=== PATIENT | male | born 1965 | race Caucasian/White ===

== ENCOUNTER 2017-10-23 15:25 | Emergency (ER) | payer OTHER ==
[~2017-10-23] VITALS: Ht 177.8 cm; Wt 90.7 kg
[~2017-10-23 15:25] MED LIST: ACEBUTCAFT PO; ALBU90OI INH; AMOX500 PO; ATOR40TA PO; BECL40OI INH; BECL80OI INH; CHOLESTEROL MED; CIPHYDOTSU OT; CRUTCH3 USE; CYCL10 PO; DICY20 PO; EMVERM100 MG PO; ERYT.5TO OD; FISH1000 PO; HYDACE10B PO; HYDACE5 PO; IBUP200; IBUP600 PO; IBUP800 PO; KETO10 PO; LISI20 PO; LISI5 PO; META800 PO; METO50 PO; METO50ER PO; Mobic15 MG PO; NAPR500 PO; NEOPOLHCSU OT; NORT25 PO; NORTRIPTYLLINE PO; Naprosyn500 MG PO; OMEP20ER PO; OXYACE5T; OXYACE5T PO; OXYC5 PO; PROC10 PO; PROM25 PO; Percocet 5-3251 EACH PO; RANI150 PO; Robaxin500 MG PO; SILSUL1TC TOP; SIMV10 PO; SIMVASTATIN PO; SUCR1SU PO; SUMA25 PO; SUMA5NI; TRAM50 PO; UNKNOWN CHOLESTEROL; Ultram50 MG PO; VENL37.5 PO; VENL75ER PO; Ventolin5 MG/1 ML IH; Voltaren100 GM TP; Zofran Odt4 MG SL
== END 2017-10-23 16:41 | disposition home or self-care (01) ==
LOC: ER 15:25
DX: H54.62 Unqualified visual loss, left eye, normal vision right eye (principal); I10 Essential (primary) hypertension; F17.200 Nicotine dependence, unspecified, uncomplicated; Z88.8 Allergy status to other drugs, medicaments and biological substances; Z88.5 Allergy status to narcotic agent; Z88.6 Allergy status to analgesic agent
CPT/HCPCS: 36415; 85651; 86140; 99283

== ENCOUNTER 2018-05-30 13:56 | Emergency (ER) | payer OTHER ==
[~2018-05-30] VITALS: Ht 177.8 cm; Wt 79.4 kg
[2018-05-30] MEDS ORDERED: Percocet 5-3251 EACH PO (15:18)
== END 2018-05-30 15:32 | disposition home or self-care (01) ==
LOC: ER 13:56
DX: S62.302A Unspecified fracture of third metacarpal bone, right hand, initial encounter for closed fracture (principal); W01.198A Fall on same level from slipping, tripping and stumbling with subsequent striking against other object, initial encounter; Z88.8 Allergy status to other drugs, medicaments and biological substances; Z88.5 Allergy status to narcotic agent; I10 Essential (primary) hypertension; F17.200 Nicotine dependence, unspecified, uncomplicated
CPT/HCPCS: 29125; 73130; 99283-25

== ENCOUNTER 2018-08-16 16:29 | Emergency (ER) | payer OTHER ==
[~2018-08-16] VITALS: Ht 177.8 cm; Wt 68.0 kg
[2018-08-16] MEDS ORDERED: CYCL10 PO (16:57)
[2018-08-16] MEDS ORDERED: Percocet 5-3251 EACH PO (16:57)
== END 2018-08-16 17:12 | disposition home or self-care (01) ==
LOC: ER 16:29
DX: M54.5 Low back pain (principal); I12.0 Hypertensive chronic kidney disease with stage 5 chronic kidney disease or end stage renal disease; N18.5 Chronic kidney disease, stage 5; F17.200 Nicotine dependence, unspecified, uncomplicated; X50.0XXA Overexertion from strenuous movement or load, initial encounter
CPT/HCPCS: 96372; 99283-25; J1885

== ENCOUNTER 2018-11-15 13:42 | Emergency (ER) | payer OTHER ==
[~2018-11-15] VITALS: Ht 177.8 cm; Wt 85.7 kg
[~2018-11-15 13:42] MED LIST changes: +Norco 7.5-3251 EACH PO
[2018-11-15] MEDS ORDERED: Flonase 0.05% N16 GM (14:36)
[2018-11-15] MEDS ORDERED: LISI20 PO (14:37)
[2018-11-15] MEDS ORDERED: AMLO5 PO (14:37)
[2018-11-15] MEDS ORDERED: OMEPRAZOLE20 MG PO (14:37)
[2018-11-19] MEDS ORDERED: ATOR80 PO (14:15)
== END 2018-11-15 15:52 | disposition left against medical advice (07) ==
LOC: ER 13:42
DX: Z53.21 Procedure and treatment not carried out due to patient leaving prior to being seen by health care provider (principal)

== ENCOUNTER 2019-10-20 11:17 | Emergency (ER) | payer OTHER ==
[~2019-10-20] VITALS: Ht 177.8 cm; Wt 99.8 kg
[~2019-10-20 11:17] MED LIST changes: +AMLO5 PO; +ATOR80 PO; +Flonase 0.05% N16 GM; +OMEPRAZOLE20 MG PO
[2019-10-20 12:10] LABS: BASOPHILS PERCENT AUTO 2 % (0-2); EOSINOPHILS ABSOLUTE AUTO 0.25 K/mm3 (0.00-0.68); EOSINOPHILS PERCENT AUTO 4 % (0-6); Hemoglobin 16.2 g/dL (13.5-17.5); IMMATURE GRAN ABSOLUTE AUTO 0.03 K/mm3 (0.00-0.10); IMMATURE GRAN PERCENT AUTO 0 % (0-1); LYMPHOCYTES ABSOLUTE AUTO 2.21 K/mm3 (0.84-5.20); LYMPHOCYTES PERCENT AUTO 33 % (21-46); MONOCYTES ABSOLUTE AUTO 0.39 K/mm3 (0.16-1.47); MONOCYTES PERCENT AUTO 6 % (4-13); Mean Corpuscular HGB 30.5 pg (26.0-34.0); Mean Corpuscular HGB Conc 32.4 g/dL (31.5-36.5); Mean Corpuscular Volume 94 fL (80-100); Mean Platelet Volume 11.4 fL (9.1-12.4); NEUTROPHILS ABSOLUTE AUTO 3.74 K/mm3 (1.96-9.15); NEUTROPHILS PERCENT AUTO 56 % (41-73); Platelet Count 170 K/mm3 (150-400); RDW Coefficient Variation 13.2 % (11.7-14.2); RDW Standard Deviation 45.4 fL (35.1-46.3); Red Blood Cell Count 5.32 M/mm3 (4.30-5.90); White Blood Cell Count 6.72 K/mm3 (4.00-11.30)
[2019-10-20 12:24] LABS: Alanine Aminotransfer (ALT/SGP 24 U/L (12-78); Albumin, Blood 3.4 g/dL (3.4-5.0); Alk Phos 116 U/L (50-136); Anion Gap 4 mmol/L (6-16); Aspartate Aminotrans (AST/SGOT 18 U/L (12-37); Bilirubin, Total 0.2 mg/dL (0.1-1.0); Blood Urea Nitrogen 14 mg/dL (8-24); Bun/Creatinine Ratio 16.1 (12.0-20.0); CO2, Blood 26 mmol/L (21-32); Calcium, Blood 8.4 mg/dL (8.5-10.1); Chloride, Blood 111 mmol/L (98-108); Creatinine, Blood 0.87 mg/dL (0.60-1.20); Globulin, Blood 3.4 g/dL (2.2-4.0); Glomerular Filtration Rate >60 (60-); Glucose, Blood 89 mg/dL (70-99); Magnesium, Blood 2.4 mg/dL (1.6-2.4); Potassium, Blood 4.2 mmol/L (3.5-5.5); Sodium, Blood 141 mmol/L (136-145); Total Protein, Blood 6.8 g/dL (6.4-8.2); Troponin I <0.015 ng/mL (0.000-0.040)
[2019-10-20] MEDS ORDERED: Prinivil10 MG PO (15:04)
== END 2019-10-20 15:22 | disposition home or self-care (01) ==
LOC: ER 11:17
PROVIDERS: Emergency Medicine
DX: R07.89 Other chest pain (principal); I10 Essential (primary) hypertension; Z88.6 Allergy status to analgesic agent; Z88.5 Allergy status to narcotic agent; Z88.8 Allergy status to other drugs, medicaments and biological substances; Z79.899 Other long term (current) drug therapy; E78.00 Pure hypercholesterolemia, unspecified; F31.9 Bipolar disorder, unspecified; F90.9 Attention-deficit hyperactivity disorder, unspecified type; N19 Unspecified kidney failure; J45.909 Unspecified asthma, uncomplicated; G47.30 Sleep apnea, unspecified; F17.200 Nicotine dependence, unspecified, uncomplicated
CPT/HCPCS: 71046; 80053; 83690; 83735; 83880; 84484; 85025; 93005; 93010; 96374; 96375; 99285-25; J0360; J1885

== ENCOUNTER 2020-08-27 04:51 | Emergency (ER) | payer OTHER ==
[~2020-08-27] VITALS: Ht 177.8 cm; Wt 99.8 kg
[~2020-08-27 04:51] MED LIST changes: +Prinivil10 MG PO
[2020-08-27] MEDS ORDERED: CYCL10 PO (07:38)
[2020-08-27] MEDS ORDERED: PRED20 PO (07:38)
== END 2020-08-27 07:51 | disposition home or self-care (01) ==
LOC: ER 04:51
DX: M54.16 Radiculopathy, lumbar region (principal); I10 Essential (primary) hypertension; E78.00 Pure hypercholesterolemia, unspecified; J45.909 Unspecified asthma, uncomplicated; F17.210 Nicotine dependence, cigarettes, uncomplicated; Z88.8 Allergy status to other drugs, medicaments and biological substances
CPT/HCPCS: 99283; A9270; J1100

== ENCOUNTER 2020-09-01 20:39 | Emergency (ER) | payer OTHER ==
[~2020-09-01] VITALS: Ht 172.7 cm; Wt 86.2 kg
[~2020-09-01 20:39] MED LIST changes: +PRED20 PO
[2020-09-01] MEDS ORDERED: CLIN300 PO (21:07)
== END 2020-09-01 21:11 | disposition home or self-care (01) ==
LOC: ER 20:39
DX: L02.811 Cutaneous abscess of head [any part, except face] (principal); I10 Essential (primary) hypertension; E78.00 Pure hypercholesterolemia, unspecified; F17.210 Nicotine dependence, cigarettes, uncomplicated; Z79.82 Long term (current) use of aspirin; Z79.899 Other long term (current) drug therapy; Z88.6 Allergy status to analgesic agent; Z88.5 Allergy status to narcotic agent; Z88.8 Allergy status to other drugs, medicaments and biological substances
CPT/HCPCS: 99283; A9270

== ENCOUNTER 2020-11-21 11:24 | Emergency (ER) | payer OTHER ==
[~2020-11-21] VITALS: Ht 177.8 cm; Wt 99.8 kg
[~2020-11-21 11:24] MED LIST changes: +CLIN300 PO
== END 2020-11-21 15:29 | disposition left against medical advice (07) ==
LOC: ER 11:24
DX: K04.7 Periapical abscess without sinus (principal); Z53.21 Procedure and treatment not carried out due to patient leaving prior to being seen by health care provider
CPT/HCPCS: 99282

== ENCOUNTER 2023-09-28 07:25 | Day surgery (SDC) | payer OTHER ==
[2023-09-28] MEDS ORDERED: propofoL 50 ML IV ONE (07:35)
[2023-09-28] MEDS ORDERED: Lactated Ringer's 1,000 ML IV ONE ×2 (07:35→08:15)
[2023-09-28] MEDS ORDERED: NICOTINE LOZENGE2 MG ×2 (07:43)
[2023-09-28] MEDS ORDERED: ZESTRIL40 M1 ×2 (07:43)
[2023-09-28 09:32] VITALS: BP 156/104
[2023-10-03] MEDS ORDERED: NICO21TP TOP ×2 (14:44)
[2023-10-03] MEDS ORDERED: DOCU100 PT ×2 (14:46)
[2023-10-03] MEDS ORDERED: OXYC5 PO ×2 (14:47)
== END 2023-09-28 09:15 | disposition home or self-care (01) ==
LOC: ORSCSDS 07:25
PROVIDERS: Internal Medicine Gastroenterology
PROC: 0DB58ZX Excision of Esophagus, Via Natural or Artificial Opening Endoscopic, Diagnostic (ICD-10-PCS; principal; 2023-09-28 08:45)
DX: R13.10 Dysphagia, unspecified (principal); C15.5 Malignant neoplasm of lower third of esophagus; R93.3 Abnormal findings on diagnostic imaging of other parts of digestive tract; R63.4 Abnormal weight loss; F31.9 Bipolar disorder, unspecified; G47.33 Obstructive sleep apnea (adult) (pediatric); Z79.899 Other long term (current) drug therapy; Z87.891 Personal history of nicotine dependence
CPT/HCPCS: 88305; 88360; J2704; J7120

== ENCOUNTER 2023-09-28 13:08 | Inpatient (IN) | payer OTHER ==
[~2023-09-28] VITALS: Ht 177.8 cm; Wt 68.7 kg
[~2023-09-28 13:08] MED LIST changes: +NICOTINE LOZENGE2 MG; +ZESTRIL40 M1
[2023-09-28] MEDS ORDERED: Acetaminophen 650 MG Supp PR PRN (15:35)
[2023-09-28] MEDS ORDERED: HYDROmorphone HCl/Pf 1MG SYR IV PRN (15:40)
[2023-09-28] MEDS ORDERED: Ondansetron HCl 2 MG / ML 2ML Vial IV PRN (15:40)
[2023-09-28] MEDS ORDERED: Bisacodyl 10 MG Supp PR PRN (15:40)
[2023-09-28] MEDS ORDERED: Naloxone HCl 0.4MG / ML 1ML Vial IV PRN (15:40)
[2023-09-28] MEDS ORDERED: Morphine Sulfate 4 MG/1 ML Injection IV PRN (15:45)
[2023-09-28] MEDS ORDERED: D5W-NS 1,000 ML IV SCH (16:00)
[2023-09-28 17:27] VITALS: BP 180/107
[2023-09-28 19:26] VITALS: BP 174/109
[2023-09-28] MEDS ORDERED: Famotidine 10 MG/ML 2ML Vial IV SCH (21:00)
[2023-09-28] MEDS ORDERED: Lactobacil 2-S.Thermo-Bifido 1 1 Cap PO SCH (21:00)
[2023-09-29 02:54] VITALS: BP 166/102
--- NOTE | 2023-09-29 04:53 | NUR ---
SHIFT SUMMARY: RICHARD IS A&OX4. VSS, BP ELEVATED BUT CONSISTENT WITH TREND. PT IS NPO, MOUTH SWABS AND MOISTURIZER PROVIDED. IV TO RIGHT WRIST PATENT, FLUIDS INFUSING. PT IS INDEPENDENT IN THE ROOM AND REPORTS ADEQUATE PAIN CONTROL WITH MEDICATIONS PER MAR. PT STATES AWAITING PEG TUBE PLACEMENT, NO SURGICAL CONSULT IN PLACE AT THIS TIME, STUDIO OPERATIONS MANAGER HAS BEEN CONSULTED. PT IS LYING IN BED WITH THE CALL LIGHT IN REACH. WILL GIVE REPORT TO DAY SHIFT RN.
[2023-09-29 05:22] LABS: BASOPHILS ABSOLUTE AUTO 0.07 K/mm3 (0.00-0.23); BASOPHILS PERCENT AUTO 1 % (0-2); EOSINOPHILS ABSOLUTE AUTO 0.22 K/mm3 (0.00-0.68); EOSINOPHILS PERCENT AUTO 4 % (0-6); Hematocrit 43.9 % (37.0-53.0); Hemoglobin 14.3 g/dL (13.5-17.5); IMMATURE GRAN ABSOLUTE AUTO 0.02 K/mm3 (0.00-0.10); IMMATURE GRAN PERCENT AUTO 0 % (0-1); LYMPHOCYTES ABSOLUTE AUTO 1.63 K/mm3 (0.84-5.20); LYMPHOCYTES PERCENT AUTO 30 % (21-46); MONOCYTES ABSOLUTE AUTO 0.45 K/mm3 (0.16-1.47); MONOCYTES PERCENT AUTO 8 % (4-13); Mean Corpuscular HGB 29.2 pg (26.0-34.0); Mean Corpuscular HGB Conc 32.6 g/dL (31.5-36.5); Mean Corpuscular Volume 90 fL (80-100); Mean Platelet Volume 10.3 fL (9.1-12.4); NEUTROPHILS ABSOLUTE AUTO 3.09 K/mm3 (1.96-9.15); NEUTROPHILS PERCENT AUTO 56 % (41-73); Platelet Count 215 K/mm3 (150-400); RDW Coefficient Variation 12.9 % (11.7-14.2); RDW Standard Deviation 42.4 fL (35.1-46.3); Red Blood Cell Count 4.89 M/mm3 (4.30-5.90); White Blood Cell Count 5.48 K/mm3 (4.00-11.30)
[2023-09-29 05:49] LABS: Albumin, Blood 3.1 g/dL (3.4-5.0); Albumin/Globulin Ratio 0.9 (0.8-1.8); Bilirubin, Total 0.4 mg/dL (0.1-1.0); Calcium, Blood 8.4 mg/dL (8.5-10.1); Creatinine, Blood 0.89 mg/dL (0.60-1.20); Globulin, Blood 3.3 g/dL (2.2-4.0); Magnesium, Blood 2.3 mg/dL (1.6-2.4); Potassium, Blood 3.7 mmol/L (3.5-5.5); Total Protein, Blood 6.4 g/dL (6.4-8.2)
[2023-09-29 07:47] VITALS: BP 163/112
[2023-09-29] MEDS ORDERED: Heparin Sodium,Porcine 5,000 UNIT/0.5 ML SDV SC SCH (09:00)
[2023-09-29] MEDS ORDERED: Nicotine 21 MG PATCH TOP PRN (10:10)
[2023-09-29] MEDS ORDERED: Phenol/Sodium Phenolate Oral Spray 180 ML MM PRN (10:10)
[2023-09-29] MEDS ORDERED: TPN Consult Notification XX ONE (11:20)
--- NOTE | 2023-09-29 12:45 | NUR ---
pleasant to care, clearly makes needs known, family visited, new eye patch for patient for migraine headache, medicated for pain, throat spray started, dr knox consult called in, npo, indepedant in room, call light with in reach
--- NOTE | 2023-09-29 14:57 | NUR ---
PATIENT HAS HAD MORE VISITORS, ALL HAVE BEEN PLEASANT, PATIENT COMPAINED OF 9/10 PAIN, MEDICATED WITH DILAUDID, CALL LIGHT WITH IN REACH
[2023-09-29 15:08] VITALS: BP 165/104
[2023-09-29] MEDS ORDERED: [UNRECOGNIZED DRUG - NUTRITION] IV SCH (17:00)
--- NOTE | 2023-09-29 17:28 | NUR ---
DR LORA IN ROOM FOR CONSULT NOW, NO ACUTE CHANGES, NPO, TROAT SPRAY AND NICOTINE PATCH STARTED, DR LORA REPORTED PLACEMENT OF GASTROEMTRY TUBE TOMORROW AROUND 930, PPN STARTED, BS CHECKED PRIOR TO PPN STARTED 93, ALERT AND ORIENTED TO ALL, CLEARLY MAKES NEEDS KNOWN, INDEPEDANT IN ROOM, MEDICATED FOR PAIN WITH DILAUDID, WILL RELAY TO PM RN, CALL LIGHT WITH IN REACH
[2023-09-29] MEDS ORDERED: CeFAZolin Sodium 2,000 MG in NS 100 ML IV SCH (18:30)
[2023-09-29 20:16] VITALS: BP 145/110
[2023-09-30] VITALS (16 sets, daily range): BP systolic 105–151; BP diastolic 70–94
[2023-09-30 05:09] LABS: BASOPHILS ABSOLUTE AUTO 0.09 K/mm3 (0.00-0.23); BASOPHILS PERCENT AUTO 1 % (0-2); EOSINOPHILS PERCENT AUTO 3 % (0-6); Hemoglobin 14.3 g/dL (13.5-17.5); IMMATURE GRAN ABSOLUTE AUTO 0.01 K/mm3 (0.00-0.10); IMMATURE GRAN PERCENT AUTO 0 % (0-1); LYMPHOCYTES ABSOLUTE AUTO 1.78 K/mm3 (0.84-5.20); LYMPHOCYTES PERCENT AUTO 28 % (21-46); MONOCYTES ABSOLUTE AUTO 0.53 K/mm3 (0.16-1.47); MONOCYTES PERCENT AUTO 8 % (4-13); Mean Corpuscular HGB 29.7 pg (26.0-34.0); Mean Corpuscular HGB Conc 33.3 g/dL (31.5-36.5); Mean Corpuscular Volume 89 fL (80-100); Mean Platelet Volume 10.3 fL (9.1-12.4); NEUTROPHILS ABSOLUTE AUTO 3.72 K/mm3 (1.96-9.15); NEUTROPHILS PERCENT AUTO 59 % (41-73); Platelet Count 206 K/mm3 (150-400); RDW Coefficient Variation 12.8 % (11.7-14.2); RDW Standard Deviation 42.2 fL (35.1-46.3); Red Blood Cell Count 4.82 M/mm3 (4.30-5.90); White Blood Cell Count 6.33 K/mm3 (4.00-11.30)
--- NOTE | 2023-09-30 05:36 | NUR ---
SHIFT SUMMARY: RICHARD IS A&OX4. VSS, NO ACUTE EVENTS THIS SHIFT. IV TO R WRIST PATENT, PPN INFUSING. PT IS NPO. HE DENIES ANY DIFFICULTY URINATING. PT STATES HE IS SCHEDULED TO HAVE A FEEDING TUBE PLACED THIS MORNING. PT REPORTS ADEQUATE PAIN CONTROL WITH MEDICATION PER JUN. HE IS INDEPENDENT IN THE ROOM. HE IS LYING IN BED WITH THE CALL LIGHT IN REACH. WILL GIVE REPORT TO DAY SHIFT RN.
[2023-09-30 05:45] LABS: Alanine Aminotransfer (ALT/SGP 14 U/L (12-78); Albumin, Blood 2.9 g/dL (3.4-5.0); Albumin/Globulin Ratio 0.9 (0.8-1.8); Alk Phos 93 U/L (50-136); Anion Gap 8 mmol/L (3-11); Aspartate Aminotrans (AST/SGOT 13 U/L (12-37); Bilirubin, Total 0.4 mg/dL (0.1-1.0); Blood Urea Nitrogen 13 mg/dL (8-24); Bun/Creatinine Ratio 15.6 (12.0-20.0); CO2, Blood 27 mmol/L (21-32); Calcium, Blood 8.6 mg/dL (8.5-10.1); Chloride, Blood 107 mmol/L (98-108); Creatinine, Blood 0.84 mg/dL (0.60-1.20); Globulin, Blood 3.4 g/dL (2.2-4.0); Glomerular Filtration Rate 101 (60-); Glucose, Blood 113 mg/dL (70-99); Magnesium, Blood 2.3 mg/dL (1.6-2.4); Phosphorus, Blood 3.5 mg/dL (2.5-4.9); Potassium, Blood 3.9 mmol/L (3.5-5.5); Sodium, Blood 138 mmol/L (136-145); Total Protein, Blood 6.3 g/dL (6.4-8.2); Triglycerides 89 mg/dL (30-160)
[2023-09-30] MEDS ORDERED: Rocuronium Bromide 10 MG/ML 5ML Injection IV ONE (09:06)
[2023-09-30] MEDS ORDERED: propofoL 20 ML IV ONE (09:07)
[2023-09-30] MEDS ORDERED: FentaNYL Citrate 50 MCG/ML 2 ML Injection ONE (09:07)
[2023-09-30] MEDS ORDERED: Lactated Ringer's 1,000 ML IV ONE (09:11)
[2023-09-30] MEDS ORDERED: Midazolam HCl 1MG / ML 2ML Vial ONE (10:18)
[2023-09-30] MEDS ORDERED: Bupivacaine 0.5% HCl 5 MG/ML 30MLVIAL ONE (10:18)
[2023-09-30] MEDS ORDERED: Phenylephrine HCl 100 MCG/ML-NS 10MLSYR (1MG/10ML) ONE (11:01)
[2023-09-30] MEDS ORDERED: Vasopressin 20 UNITS/ML 1ML Vial ONE (11:12)
[2023-09-30] MEDS ORDERED: ePHEDrine Sulfate 50 MG/ML 1ML Injection ONE (11:15)
[2023-09-30] MEDS ORDERED: Sugammadex Sodium 200 MG/2ML SDV (100 MG/ML) ONE (11:43)
[2023-09-30] MEDS ORDERED: HYDROmorphone HCl/Pf 1MG SYR ONE (12:40)
[2023-09-30] MEDS ORDERED: Prochlorperazine Edisylate 10 mg Vial ONE (12:44)
--- NOTE | 2023-09-30 18:34 | NUR ---
ALERT AND OREINTED TO ALL, GTUBE PLACED, PPN INFUSING IV UNTIL OVEN UNLOADER EVALUATES TO NEW GTUBE FORMAL THAT IS NEEDED TOMORROW. MEDICATED FOR THROAT PAIN AND ABD PAIN, COOPERATIVE TO CARE, CALL LIGHT WITH IN REACH, WILL RELAY TO PM RN
[2023-10-01 04:41] VITALS: BP 154/99
[2023-10-01 05:07] LABS: BASOPHILS ABSOLUTE AUTO 0.02 K/mm3 (0.00-0.23); BASOPHILS PERCENT AUTO 0 % (0-2); EOSINOPHILS ABSOLUTE AUTO 0.01 K/mm3 (0.00-0.68); EOSINOPHILS PERCENT AUTO 0 % (0-6); Hematocrit 40.5 % (37.0-53.0); Hemoglobin 13.6 g/dL (13.5-17.5); IMMATURE GRAN ABSOLUTE AUTO 0.03 K/mm3 (0.00-0.10); IMMATURE GRAN PERCENT AUTO 0 % (0-1); LYMPHOCYTES ABSOLUTE AUTO 1.11 K/mm3 (0.84-5.20); LYMPHOCYTES PERCENT AUTO 10 % (21-46); MONOCYTES ABSOLUTE AUTO 0.84 K/mm3 (0.16-1.47); MONOCYTES PERCENT AUTO 8 % (4-13); Mean Corpuscular HGB 29.5 pg (26.0-34.0); Mean Corpuscular HGB Conc 33.6 g/dL (31.5-36.5); Mean Corpuscular Volume 88 fL (80-100); Mean Platelet Volume 10.7 fL (9.1-12.4); NEUTROPHILS ABSOLUTE AUTO 8.72 K/mm3 (1.96-9.15); NEUTROPHILS PERCENT AUTO 81 % (41-73); Platelet Count 212 K/mm3 (150-400); RDW Coefficient Variation 12.8 % (11.7-14.2); RDW Standard Deviation 41.1 fL (35.1-46.3); Red Blood Cell Count 4.61 M/mm3 (4.30-5.90); White Blood Cell Count 10.73 K/mm3 (4.00-11.30)
[2023-10-01 05:31] LABS: Albumin, Blood 2.9 g/dL (3.4-5.0); Albumin/Globulin Ratio 0.8 (0.8-1.8); Bilirubin, Total 0.4 mg/dL (0.1-1.0); Bun/Creatinine Ratio 22.5 (12.0-20.0); Calcium, Blood 8.7 mg/dL (8.5-10.1); Creatinine, Blood 0.98 mg/dL (0.60-1.20); Globulin, Blood 3.5 g/dL (2.2-4.0); Magnesium, Blood 2.6 mg/dL (1.6-2.4); Phosphorus, Blood 3.5 mg/dL (2.5-4.9); Potassium, Blood 4.7 mmol/L (3.5-5.5); Total Protein, Blood 6.4 g/dL (6.4-8.2)
[2023-10-01 07:03] VITALS: BP 155/95
--- NOTE | 2023-10-01 07:11 | NUR ---
SHIFT SUMMARY PT IS A&OX4,PLEASANT AND APPRECIATIVE OF ALL CARES. VSS ON RA. PER TELEMETRY PT IS SR IN THE 60'S. C/O PAIN IN HIS THROAT AND AROUND THE NEWLY PLACED G-TUBE. MEDICATED WITH 2MG IV DILAUDID WITH GOOD RELIEF. CHLORASEPTIC SPRAY USED FOR THROAT PAIN. PT REMAINS NPO, PPN INFUSING PER EMAR. SECOND PIV PLACED TO LEFT FOREARM. DRESSING TO G-TUBE PLACEMENT IS C/D/I. PT IS CACHECTIC IN APPEARANCE, AND HAS MULTIPLE SCABS SCATTERED T/O. FREQUENTLY ITCHING THEM. PT DOES NOT SLEEP WELL AND AT HOME HE TAKES THC TO HELP WITH HIS INSOMNIA. SBA FOR LINE MANAGEMENT TO BR. VOIDING IN TOILET, NO BM THIS SHIFT. FRIEND AT BEDSIDE T/O NOC, ATTENTIVE TO PT. BED IN LOWEST POSITION, CALL LIGHT WITHIN REACH.
[2023-10-01 15:02] VITALS: BP 148/99
--- NOTE | 2023-10-01 18:16 | NUR ---
NO ACUTE CHANGES, ALERT AND ORIENTED TO ALL INDEPEDANT IN ROOM, TELE DC, DR COATS INFIRMED PATIENT THE BIOPSY DID COME BACK CANCEROUS, PALLIATIVE CARE TO CHECK ON PATIENT TOMORROW, PPN INFUSING, DIETARIY IN HOUSE TOMORROW, DR COATS CLARIFIED PPN THROUGH THE NIGHT AND GTUBE FEEDS TOMORROW PER DIETARY RECOMMENDATIONS, PLEASANT TO CARE, CALL LIGHT WITH IN REACH, WILL RELAY TO PM
[2023-10-01] MEDS ORDERED: HyDROXyzine HCl 25 MG Tab PT PRN (19:50)
[2023-10-01 19:52] VITALS: BP 158/98
[2023-10-02 03:11] VITALS: BP 154/84
[2023-10-02 04:29] LABS: BASOPHILS ABSOLUTE AUTO 0.04 K/mm3 (0.00-0.23); BASOPHILS PERCENT AUTO 1 % (0-2); EOSINOPHILS ABSOLUTE AUTO 0.12 K/mm3 (0.00-0.68); EOSINOPHILS PERCENT AUTO 2 % (0-6); Hematocrit 39.3 % (37.0-53.0); Hemoglobin 12.9 g/dL (13.5-17.5); IMMATURE GRAN ABSOLUTE AUTO 0.01 K/mm3 (0.00-0.10); IMMATURE GRAN PERCENT AUTO 0 % (0-1); LYMPHOCYTES PERCENT AUTO 27 % (21-46); MONOCYTES ABSOLUTE AUTO 0.52 K/mm3 (0.16-1.47); MONOCYTES PERCENT AUTO 8 % (4-13); Mean Corpuscular HGB 29.5 pg (26.0-34.0); Mean Corpuscular HGB Conc 32.8 g/dL (31.5-36.5); Mean Corpuscular Volume 90 fL (80-100); Mean Platelet Volume 10.5 fL (9.1-12.4); NEUTROPHILS PERCENT AUTO 63 % (41-73); Platelet Count 178 K/mm3 (150-400); Red Blood Cell Count 4.37 M/mm3 (4.30-5.90); White Blood Cell Count 6.39 K/mm3 (4.00-11.30)
[2023-10-02 04:48] LABS: Magnesium, Blood 2.4 mg/dL (1.6-2.4)
[2023-10-02 04:49] LABS: Albumin, Blood 2.8 g/dL (3.4-5.0); Albumin/Globulin Ratio 0.8 (0.8-1.8); Bilirubin, Total 0.4 mg/dL (0.1-1.0); Bun/Creatinine Ratio 28.7 (12.0-20.0); Calcium, Blood 8.6 mg/dL (8.5-10.1); Creatinine, Blood 0.87 mg/dL (0.60-1.20); Globulin, Blood 3.3 g/dL (2.2-4.0); Phosphorus, Blood 4.1 mg/dL (2.5-4.9); Potassium, Blood 4.1 mmol/L (3.5-5.5); Total Protein, Blood 6.1 g/dL (6.4-8.2)
--- NOTE | 2023-10-02 05:44 | NUR ---
SHIFT SUMMARY PT IS A&OX4,PLEASANT AND APPRECIATIVE OF ALL CARES. VSS ON RA. C/O PAIN IN HIS THROAT AND AROUND THE NEWLY PLACED G-TUBE. MEDICATED WITH 2MG IV MORPHINE WITH GOOD RELIEF. PT ANXIOUS THIS EVENING R/T NEW DIAGNOSIS. 25MG OF ATARAX GIVEN VIA G-TUBE. TOLERATED WELL, AND SLEPT T/O NOC. CHLORASEPTIC SPRAY USED FOR THROAT PAIN. PT REMAINS NPO, PPN INFUSING PER EMAR. G-TUBE DRESSING IS C/D/I. UP AD BRENDA, INDEPENDENTLY IN ROOM AND HALLWAYS. VOIDING IN TOILET, NO BM THIS SHIFT. BED IN LOWEST POSITION, CALL LIGHT WITHIN REACH.
[2023-10-02 08:06] VITALS: BP 149/97
[2023-10-02] MEDS ORDERED: Magnesium Hydroxide Conc 10 ML UDC PT PRN (09:20)
[2023-10-02] MEDS ORDERED: Docusate Sodium 100 MG UDC PT PRN (09:20)
[2023-10-02 15:50] VITALS: BP 139/90
--- NOTE | 2023-10-02 18:03 | NUR ---
SHIFT SUMMARY; PATIENT STARTED TUBE FEEDS TODAY. STARTING AT 20ML AND HOUR FOR 4 HOURS THEN 40ML AND HOUR FOR 4 HOURS THEN 60ML AND HOUR AFTERWARDS WITH A 100ML WATER BOLUS EVERY 4 HOURS. PATIENT TOLERATES WELL. NADN.. HE IS MEDICATED X 2 TODAY FOR THROAT AND ABDOMINAL PAIN, HE IS AO 4. HIS LUNGS ARE CLEAR. PATIENT USES URINAL TO VOID. HE FINISHED PPN INFUSION PER DIETARY INSTRUCTIONS AND IV IS SALINE LOCKED. HE IS AO X 4 TODAY. LUNGS ARE CLEAR.
[2023-10-02 19:13] VITALS: BP 154/99
[2023-10-03 03:02] VITALS: BP 125/70
[2023-10-03 05:26] LABS: BASOPHILS ABSOLUTE AUTO 0.04 K/mm3 (0.00-0.23); BASOPHILS PERCENT AUTO 1 % (0-2); EOSINOPHILS ABSOLUTE AUTO 0.19 K/mm3 (0.00-0.68); EOSINOPHILS PERCENT AUTO 4 % (0-6); Hematocrit 40.3 % (37.0-53.0); Hemoglobin 13.2 g/dL (13.5-17.5); IMMATURE GRAN ABSOLUTE AUTO 0.01 K/mm3 (0.00-0.10); IMMATURE GRAN PERCENT AUTO 0 % (0-1); LYMPHOCYTES ABSOLUTE AUTO 1.28 K/mm3 (0.84-5.20); LYMPHOCYTES PERCENT AUTO 24 % (21-46); MONOCYTES ABSOLUTE AUTO 0.61 K/mm3 (0.16-1.47); MONOCYTES PERCENT AUTO 11 % (4-13); Mean Corpuscular HGB 29.6 pg (26.0-34.0); Mean Corpuscular HGB Conc 32.8 g/dL (31.5-36.5); Mean Corpuscular Volume 90 fL (80-100); Mean Platelet Volume 10.9 fL (9.1-12.4); NEUTROPHILS ABSOLUTE AUTO 3.29 K/mm3 (1.96-9.15); NEUTROPHILS PERCENT AUTO 61 % (41-73); Platelet Count 177 K/mm3 (150-400); RDW Coefficient Variation 13.2 % (11.7-14.2); RDW Standard Deviation 43.1 fL (35.1-46.3); Red Blood Cell Count 4.46 M/mm3 (4.30-5.90); White Blood Cell Count 5.42 K/mm3 (4.00-11.30)
[2023-10-03 05:47] LABS: Albumin, Blood 2.8 g/dL (3.4-5.0); Albumin/Globulin Ratio 0.8 (0.8-1.8); Bilirubin, Total 0.4 mg/dL (0.1-1.0); Calcium, Blood 8.7 mg/dL (8.5-10.1); Creatinine, Blood 0.9 mg/dL (0.60-1.20); Globulin, Blood 3.3 g/dL (2.2-4.0); Phosphorus, Blood 4.5 mg/dL (2.5-4.9); Total Protein, Blood 6.1 g/dL (6.4-8.2)
--- NOTE | 2023-10-03 06:49 | NUR ---
SHIFT SUMMARY PT IS A&OX4, PLEASANT AND APPRECIATIVE OF ALL CARES. VSS ON RA. C/O PAIN IN HIS THROAT AND AROUND HIS G-TUBE. MEDICATED WITH 4MG IV MORPHINE. PT REMAINS IN PAIN, SO THEN MEDICATED WITH 2MG IV DILAUDID. PT IS ANXIOUS, 25MG OF ATARAX GIVEN VIA G-TUBE. CHLORASEPTIC SPRAY USED FOR THROAT PAIN. PT REMAINS NPO. JEVITY 1.5 TUBE FEEDING INFUSING AT GOAL OF 60ML, WITH 100ML WATER FLUSH Q4. PT IS TOLERATING THIS WELL, BESIDES HE IS GETTING A LOT OF FOAM/SPIT-UP IN HIS MOUTH. G-TUBE DRESSING IS C/D/I. UP AD BRENDA, INDEPENDENTLY IN ROOM AND HALLWAYS. VOIDING IN URINAL, NO BM THIS SHIFT. MILK OF MAG GIVEN PER G-TUBE. BED IN LOWEST POSITION, CALL LIGHT WITHIN REACH.
[2023-10-03 07:30] VITALS: BP 128/76
[2023-10-03] MEDS ORDERED: OxyCODONE HCL 5 MG TAB PO PRN (07:35)
[2023-10-03] MEDS ORDERED: NICO21TP TOP (14:44)
[2023-10-03] MEDS ORDERED: DOCU100 PT (14:46)
[2023-10-03] MEDS ORDERED: OXYC5 PO (14:47)
== END 2023-10-03 15:03 | disposition home health service (06) | DRG 374 ==
LOC: ER 13:08 → MEDS 15:34
PROVIDERS: ADMIT Hospitalist
PROC: 0DB58ZX Excision of Esophagus, Via Natural or Artificial Opening Endoscopic, Diagnostic (ICD-10-PCS; principal; 2023-09-28)
PROC: 0DH64UZ Insertion of Feeding Device into Stomach, Percutaneous Endoscopic Approach (ICD-10-PCS; 2023-09-30)
DX: C15.5 Malignant neoplasm of lower third of esophagus (principal); E43 Unspecified severe protein-calorie malnutrition; I12.0 Hypertensive chronic kidney disease with stage 5 chronic kidney disease or end stage renal disease; N18.5 Chronic kidney disease, stage 5; F90.9 Attention-deficit hyperactivity disorder, unspecified type; J45.909 Unspecified asthma, uncomplicated; F31.9 Bipolar disorder, unspecified; G43.909 Migraine, unspecified, not intractable, without status migrainosus; F17.210 Nicotine dependence, cigarettes, uncomplicated; E78.5 Hyperlipidemia, unspecified; F15.90 Other stimulant use, unspecified, uncomplicated; Z68.21 Body mass index [BMI] 21.0-21.9, adult
CPT/HCPCS: 36415; 71260; 74177; 80053; 82947; 83735; 84100; 84478; 85025; 85610; 94760; 94762; 99284-25; A9270; C1769; J0690; J0780; J1170; J1644; J2250; J2270; J2371; J2704; J3010; J3411; J7042; J7120; Q9967

== ENCOUNTER 2023-11-02 08:51 | Day surgery (SDC) | payer OTHER ==
[~2023-11-02] VITALS: Ht 174 cm; Wt 67.5 kg
[2023-11-02] VITALS (13 sets, daily range): BP systolic 103–166; BP diastolic 72–120
[~2023-11-02 08:51] MED LIST changes: +CeFAZolin Sodium 2,000 MG in NS 100 ML IV SCH; +DOCU100 PT; +Lactated Ringer's 1,000 ML IV SCH; +NICO21TP TOP
[2023-11-02] MEDS ORDERED: ZESTRIL40 M2 PO (11:00)
[2023-11-02] MEDS ORDERED: Ondansetron Odt8 MG MM (11:01)
--- NOTE | 2023-11-02 11:10 | NUR ---
PT HYERTENSIVE, SURGEON & ANESTHESIOLOGIST NOTIFIED. OKAY TO PROCEED.
[2023-11-02] MEDS ORDERED: Bupivacaine 0.5% HCl 5 MG/ML 30MLVIAL ONE (11:31)
[2023-11-02] MEDS ORDERED: Lidocaine HCl 1% 30 ML SDV ONE (11:33)
--- NOTE | 2023-11-02 11:43 | NUR ---
PT HAS SEVERAL BUG BITES OVER ENTIRE BODY, IN VARIOUS STAGES OF HEALING. SURGEON NOTIFIED, AT BEDSIDE TO ASSESS. STS OKAY TO PROCEED.
--- NOTE | 2023-11-02 11:46 | NUR ---
History, Chart, Medications and Allergies reviewed before start of procedure. Patient up to Ambulate independently. Gait steady. Pre-Op teaching done. Pt verbalizes understanding. Patient confirms NPO status and agrees with scheduled surgery. Patient reports completing Chlorhexadine shower X2 prior to admission to hospital. Surgical site prepped with 2% Chlorhexidine cloth wipe. Lungs clear T/O to Auscultation. Patient States Post-Procedure ride home has been arranged.
[2023-11-02] MEDS ORDERED: propofoL 20 ML IV ONE (11:56)
[2023-11-02] MEDS ORDERED: HydrALAZINE HCl 20 MG / ML 1ML Vial ONE (11:57)
[2023-11-02] MEDS ORDERED: Ondansetron HCl 2 MG / ML 2ML Vial ONE (11:57)
[2023-11-02] MEDS ORDERED: Dexamethasone Sod Phos 10 MG/ML 1ML VIAL ONE (11:57)
[2023-11-02] MEDS ORDERED: Metoclopramide HCl 5MG / ML 2ML Vial ONE (12:01)
[2023-11-02] MEDS ORDERED: FentaNYL Citrate 50 MCG/ML 2 ML Injection ONE ×2 (12:10→12:48)
--- NOTE | 2023-11-02 12:44 | NUR ---
11/02/23 1244 Lois Nguyen ALL COUNTS CORRECT.
[2023-11-02] MEDS ORDERED: OxyCODONE 5 mg/Acetamin 325 mg TABLET PO PRN (12:50)
--- NOTE | 2023-11-02 13:08 | NUR ---
PT TO DAY SURGERY STEP DOWN FROM PACU; BEDSIDE REPORT RECEIEVED. PT IS AWAKE, ALERT AND ORIENTED; ABLE TO MOVE SELF IN BED. VSS. PT HAS STERI STRIP ON LOWER RIGHT NECK THAT IS C/D/I AND HAS A GUAZE DRESSING THAT IS COVERED WITH TEGADERM THAT IS C/D/I. PT REQUESTING PO FLUIDS.
--- NOTE | 2023-11-02 13:33 | NUR ---
ICE PACK TO UPPER CHEST. INCISIONS REMAIN C/D/I. PT TOLERATING PO FLUIDS WELL.
--- NOTE | 2023-11-02 13:50 | NUR ---
Discharge instructions reviewed with patient. Patient verbalizes understanding. Copy given to patient to take home. Patient States Post-Procedure ride home has been arranged.
--- NOTE | 2023-11-02 14:01 | NUR ---
Patient up to Ambulate independently. Gait steady. Discharged via wheelchair to private car for ride home.
== END 2023-11-02 14:03 | disposition home or self-care (01) ==
LOC: ORSCMMR 08:51 → ORD 11:15 → ORSCMMR 14:03
PROVIDERS: Surgery
PROC: 0JH60WZ Insertion of Totally Implantable Vascular Access Device into Chest Subcutaneous Tissue and Fascia, Open Approach (ICD-10-PCS; principal; 2023-11-02 11:15)
DX: C15.5 Malignant neoplasm of lower third of esophagus (principal); J45.909 Unspecified asthma, uncomplicated; F31.9 Bipolar disorder, unspecified; E78.00 Pure hypercholesterolemia, unspecified; I10 Essential (primary) hypertension; G47.33 Obstructive sleep apnea (adult) (pediatric); Z79.899 Other long term (current) drug therapy; F17.210 Nicotine dependence, cigarettes, uncomplicated
CPT/HCPCS: 77001; A9270; C1788; J0360; J0690; J1100; J1642; J2405; J2704; J2765; J3010; J7120

== ENCOUNTER 2024-01-12 15:36 | Inpatient (IN) | payer OTHER ==
[~2024-01-12] VITALS: Ht 177.8 cm; Wt 59.5 kg
[~2024-01-12 15:36] MED LIST changes: -CeFAZolin Sodium 2,000 MG in NS 100 ML IV SCH; -Lactated Ringer's 1,000 ML IV SCH; +Ondansetron Odt8 MG MM; +ZESTRIL40 M2 PO
[2024-01-12 16:35] LABS: Hematocrit 35.1 % (37.0-53.0); Hemoglobin 11.2 g/dL (13.5-17.5); Mean Corpuscular HGB 28.4 pg (26.0-34.0); Mean Corpuscular HGB Conc 31.9 g/dL (31.5-36.5); Mean Corpuscular Volume 89 fL (80-100); Mean Platelet Volume 12.3 fL (9.1-12.4); Platelet Count 128 K/mm3 (150-400); RDW Coefficient Variation 16.1 % (11.7-14.2); RDW Standard Deviation 51.4 fL (35.1-46.3); Red Blood Cell Count 3.95 M/mm3 (4.30-5.90); White Blood Cell Count 19.03 K/mm3 (4.00-11.30)
[2024-01-12 16:53] LABS: Albumin, Blood 1.7 g/dL (3.4-5.0); Albumin/Globulin Ratio 0.4 (0.8-1.8); Bilirubin, Total 0.6 mg/dL (0.1-1.0); Bun/Creatinine Ratio 21.4 (12.0-20.0); Calcium, Blood 7.5 mg/dL (8.5-10.1); Creatinine, Blood 0.89 mg/dL (0.60-1.20); Globulin, Blood 4.5 g/dL (2.2-4.0); Potassium, Blood 4.1 mmol/L (3.5-5.5); Total Protein, Blood 6.2 g/dL (6.4-8.2)
[2024-01-12 16:56] LABS: BAND PERCENT MAN 3 % (0-8); BASOPHILS PERCENT MAN 0 % (0-2); EOSINOPHILS PERCENT MAN 0 % (0-6); LYMPHOCYTES ABSOLUTE MAN 1.71 K/mm3 (0.84-5.20); LYMPHOCYTES PERCENT MAN 9 % (21-46); METAMYELOCYTE ABSOLUTE MAN 0.38 K/mm3 (0.00-0.00); METAMYELOCYTE PERCENT MAN 2 % (0-0); MONOCYTES ABSOLUTE MAN 0.19 K/mm3 (0.16-1.47); MONOCYTES PERCENT MAN 1 % (4-13); MYELOCYTE ABSOLUTE MAN 0.38 K/mm3 (0.00-0.00); MYELOCYTE PERCENT MAN 2 % (0-0); NEUTROPHILS ABSOLUTE MAN 16.36 K/mm3 (1.96-9.15); SEG NEUTROPHILS PERCENT MAN 83 % (41-73); TOTAL CELLS COUNTED 100
[2024-01-12] MEDS ORDERED: Cefepime HCl 2,000 MG in NS 50 ML IV ONE (17:05)
[2024-01-12] MEDS ORDERED: Vancomycin HCL 1,250 MG in NS 250 ML IV ONE (17:05)
[2024-01-12] MEDS ORDERED: METO10SY PO (17:21)
[2024-01-12] MEDS ORDERED: Prednisone10 MG PO (17:22)
[2024-01-12] MEDS ORDERED: Docusate S50 MG/5 ML PO (17:23)
[2024-01-12] MEDS ORDERED: Morphine Sulfate 4 MG/1 ML Injection IV ONE (17:45)
[2024-01-12 18:04] LABS: International Normalized Ratio 0.99; Prothrombin Time Results 10.6 Sec (9.7-11.5)
[2024-01-12 18:15] LABS: Albumin, Blood 1.7 g/dL (3.4-5.0); Albumin/Globulin Ratio 0.4 (0.8-1.8); Bilirubin, Direct 0.3 mg/dL (0.0-0.3); Bilirubin, Indirect 0.3 mg/dL (0.1-0.7); Bilirubin, Total 0.6 mg/dL (0.1-1.0); Globulin, Blood 4.3 g/dL (2.2-4.0); Magnesium, Blood 2.2 mg/dL (1.6-2.4)
[2024-01-12] MEDS ORDERED: OxyCODONE HCL 5 MG TAB PO PRN (18:50)
[2024-01-12] MEDS ORDERED: FLU VACC TS2024-25(6MOS UP)/PF 45 MCG/0.5 ML SYRINGE IM ONE (18:55)
[2024-01-12] MEDS ORDERED: Ondansetron HCl 2 MG / ML 2ML Vial IV PRN (18:55)
[2024-01-12] MEDS ORDERED: NS 1,000 ML IV SCH (18:55)
[2024-01-12] MEDS ORDERED: Albuterol 2.5 MG/3 ML VIAL INH PRN (19:05)
[2024-01-12] MEDS ORDERED: HydrALAZINE HCl 20 MG / ML 1ML Vial IV PRN (19:05)
[2024-01-12 19:41] LABS: U Amphetamine Screen Not Detected; U Barbituate Screen Not Detected; U Benzodiazapine Screen Not Detected; U Buprenorphine Screen Not Detected; U Cannabinoids Screen DETECTED; U Cocaine Screen Not Detected; U Methadone Screen Not Detected; U Methamphetamine Screen Not Detected; U Opiates Screen Not Detected; U Oxycodone Screen DETECTED; U Phencyclidine Screen Not Detected
[2024-01-12] MEDS ORDERED: Lactobacil 2-S.Thermo-Bifido 1 1 Cap PO SCH (21:00)
[2024-01-12 21:04] VITALS: BP 148/96
[2024-01-13] MEDS ORDERED: FentaNYL Citrate 50 MCG/ML 2 ML Injection ONE (00:09)
--- NOTE | 2024-01-13 00:43 | NUR ---
0034 OSTOMY APPLIANCE IS NOT STAYING IN PLACE ON THE BOTTOM PORTION DUE TO THE DRAINAGE FROM THE G TUBE INTERSION SITE. ATTEMPTED TO USE OSTOMY PASTE, THEN SKIN PREP WITH PASTE ON TOP, BOTH BURN THE PT'S SKIN SEVERELY. THE SKIN AROUND THE G TUBE INSERTION SITE AND FROM THE BOTTOM OF THE SITE DOWN TO THE BOTTOM OF THE PT'S ABD IS RED AND RAW. PT REPORTED THAT THE ONLY THING THAT HELPED WAS THE OSTOMY POWDER, THAT IT MADE THE BURNING GO AWAY. WE APPLIED OSTOMY POWDER TO THE REDDENED AREA, PLACED THIN NON ADHERANT PADS AROUND THE SITE, PLACED LARGE TEGADERM WITH OPENING AT THE OPENING OF THE INSTERTION SITE OVER THE TOP OF THE PADS ENOUGH THAT THERE IS A GOOD SEAL ON THE EDGES. PLACED A SMALL ABD PAD ON TOP OF THAT AND THEN A LARGE ABD PAD ON TOP OF THAT AND SECURED THE EDGES OF THAT WITH WOUND CARE TAPE. PT REPORTS THAT THIS IS NOT BURNING. SPOKE WITH DR KINNEY RE WHAT WAS OCCURING WITH THE OSTOMY APPLIANCE AND WHAT WE HAD TRIED AND WHAT WE CAME UP WITH. SHE FELT LIKE THIS MIGHT WORK AND GAVE FURTHER INTRUCTIONS THAT IF THE TEGADERM WAS NOT WORKING TO TRY EXUDERM, AND THAT IF NEITHER OF THOSE THINGS SEEMED TO BE WORKING TO CALL HER BACK FOR FURTHER INSTRUCTIONS. PRIMARY RN AWARE.
[2024-01-13] MEDS ORDERED: CefTRIAXone Sodium 1,000 MG in NS 100 ML IV SCH (02:00)
[2024-01-13 03:52] VITALS: BP 148/103
[2024-01-13 04:44] LABS: Hematocrit 33.5 % (37.0-53.0); Hemoglobin 10.9 g/dL (13.5-17.5); Mean Corpuscular HGB 28.7 pg (26.0-34.0); Mean Corpuscular HGB Conc 32.5 g/dL (31.5-36.5); Mean Corpuscular Volume 88 fL (80-100); Platelet Count 135 K/mm3 (150-400); RDW Coefficient Variation 16.1 % (11.7-14.2); RDW Standard Deviation 50.2 fL (35.1-46.3); White Blood Cell Count 16.74 K/mm3 (4.00-11.30)
[2024-01-13 04:57] LABS: International Normalized Ratio 1.02; Prothrombin Time Results 10.9 Sec (9.7-11.5)
[2024-01-13 05:09] LABS: BAND PERCENT MAN 5 % (0-8); BASOPHILS PERCENT MAN 0 % (0-2); EOSINOPHILS PERCENT MAN 0 % (0-6); LYMPHOCYTES % ATYPICAL MANUAL 1 % (0-0); LYMPHOCYTES ABSOLUTE MAN 1.84 K/mm3 (0.84-5.20); LYMPHOCYTES PERCENT MAN 10 % (21-46); METAMYELOCYTE PERCENT MAN 3 % (0-0); MONOCYTES ABSOLUTE MAN 0.33 K/mm3 (0.16-1.47); MONOCYTES PERCENT MAN 2 % (4-13); MYELOCYTE ABSOLUTE MAN 0.16 K/mm3 (0.00-0.00); MYELOCYTE PERCENT MAN 1 % (0-0); NEUTROPHILS ABSOLUTE MAN 13.89 K/mm3 (1.96-9.15); SEG NEUTROPHILS PERCENT MAN 78 % (41-73); TOTAL CELLS COUNTED 100
[2024-01-13 05:12] LABS: Albumin, Blood 1.7 g/dL (3.4-5.0); Albumin/Globulin Ratio 0.4 (0.8-1.8); Bilirubin, Total 0.6 mg/dL (0.1-1.0); Bun/Creatinine Ratio 18.2 (12.0-20.0); Calcium, Blood 7.4 mg/dL (8.5-10.1); Creatinine, Blood 0.88 mg/dL (0.60-1.20); Globulin, Blood 4.3 g/dL (2.2-4.0); Magnesium, Blood 2.2 mg/dL (1.6-2.4)
--- NOTE | 2024-01-13 05:22 | NUR ---
SHIFT SUMMARY PATIENT IS ALERT AND ORIENTED. PATIENT WAS ADMITTED OVER NIGHT. PATIENT WAS ADMITTED FOR DISLODGED G TUBE. PATIENT HAS HAD SIGNIFIGANT OUTPUT THROUGH G TUBE HOLE. SEE WOUND CARE NOTES FOR ADDITIONAL INFORMATION. DR KINNEY WAS CONTACTED REGARDING WOUND COVERAGE AND APPROVED METHOD. PATIENT HAS COMPLAINED OF PAIN AROUND G TUBE SITE ON ABD. PATIENT HAS HAD NO COMPLAINTS OF NAUSEA, SOB OR VOMITTING. IV FLUIDS INFUSED ORDERED. BED IN LOCKED AND LOWEST POSITION. CALL LIGHT IN PLACE. WILL MONITOR UNTIL SHIFT CHANGE.
[2024-01-13] MEDS ORDERED: Vancomycin HCL 1,000 MG in NS 250 ML IV SCH (06:00)
[2024-01-13 07:14] VITALS: BP 159/96
[2024-01-13] MEDS ORDERED: FentaNYL Citrate 50 MCG/ML 2 ML Injection IV PRN ×2 (08:00→23:55)
--- NOTE | 2024-01-13 08:47 | NUR ---
NOTIFIED DR. PILLAI OF POSITIVE BLOOD CULTURES
--- NOTE | 2024-01-13 08:53 | NUR ---
PATIENT HAD A CHAZ RED BLOOD STOOL. DR. PILLAI NOTIFIED. HEPARIN HELD THIS AM. PATIENT ALSO UPSET AND REPORTED THAT A GIRL 2 WEEKS AGO FED HIM CAT FECES AND METH. PATIENT REPORTS THAT HE HASN'T USED METH IN 25 YEARS AND WHEN HE DID IT WAS IV.
[2024-01-13] MEDS ORDERED: Heparin Sodium,Porcine 5,000 UNIT/0.5 ML SDV SC SCH (09:00)
[2024-01-13] MEDS ORDERED: Pantoprazole Sodium 40 MG Injection IV SCH (09:00)
[2024-01-13 09:47] LABS: U Amphetamine Screen Not Detected; U Barbituate Screen Not Detected; U Benzodiazapine Screen Not Detected; U Buprenorphine Screen Not Detected; U Cannabinoids Screen DETECTED; U Cocaine Screen Not Detected; U Methadone Screen Not Detected; U Methamphetamine Screen Not Detected; U Opiates Screen DETECTED; U Oxycodone Screen DETECTED; U Phencyclidine Screen Not Detected
[2024-01-13 10:16] LABS: Hematocrit 32.9 % (37.0-53.0); Hemoglobin 10.6 g/dL (13.5-17.5)
[2024-01-13 16:16] VITALS: BP 135/85
--- NOTE | 2024-01-13 18:25 | NUR ---
SHIFT SUMMARY: ONE OCCURANCE OF CHAZ RED BLOOD STOOL THIS MORNING; SEE NURSE NOTE ON NOTIFICATION TO DR. PILLAI. PATIENT STATES THAT HE WILL NOTIFY STAFF IF HAPPENS AGAIN. STATES THAT HE WAS CONSTIPATED AND HAS A HISTORY OF HEMORRHOIDS AND SHARING SOME TRAUMA THAT HIS MOM DID TO HIM WHEN HE WAS YOUNG. DR. KINNEY CAME BY THIS A.M. AND WAS ABLE TO GET AN OSTOMY BAG SECURED TO HIS G TUBE SITE; PATENT AND WORKING WELL. PATIENT TOLERATING WELL AND IS GETTING RELIEF FROM ABD BINDER THAT WAS PLACED. PATIENT TOLERATING ORAL INTAKE. CONTINUES TO GET IV FLUIDS. PATIENT GETTING IV ANTIBIOTICS AND PAIN MEDICATION NEEDED. HE IS IN BED, RESTING, WATCHING TV, CALL LIGHT WITHIN REACH, NO SIGNS OR SYMPTOMS OF DISTRESS, PLAN OF CARE ONGOING.
[2024-01-13 19:31] VITALS: BP 143/93
[2024-01-14 03:07] VITALS: BP 148/90
[2024-01-14 05:07] LABS: Hematocrit 30.6 % (37.0-53.0); Hemoglobin 10.1 g/dL (13.5-17.5); Mean Corpuscular HGB 28.9 pg (26.0-34.0); Mean Corpuscular Volume 88 fL (80-100); Mean Platelet Volume 11.3 fL (9.1-12.4); Platelet Count 174 K/mm3 (150-400); RDW Coefficient Variation 16.1 % (11.7-14.2); RDW Standard Deviation 49.4 fL (35.1-46.3); Red Blood Cell Count 3.49 M/mm3 (4.30-5.90); White Blood Cell Count 14.78 K/mm3 (4.00-11.30)
[2024-01-14 05:48] LABS: Anion Gap 11 mmol/L (3-11); Blood Urea Nitrogen 12 mg/dL (8-24); Bun/Creatinine Ratio 16.2 (12.0-20.0); CO2, Blood 24 mmol/L (21-32); Calcium, Blood 6.8 mg/dL (8.5-10.1); Chloride, Blood 110 mmol/L (98-108); Creatinine, Blood 0.74 mg/dL (0.60-1.20); Glomerular Filtration Rate 104 (60-); Glucose, Blood 96 mg/dL (70-99); Magnesium, Blood 2.1 mg/dL (1.6-2.4); Potassium, Blood 3.8 mmol/L (3.5-5.5); Sodium, Blood 141 mmol/L (136-145); Vancomycin, Trough 14.4 ug/mL (5.0-10.0)
--- NOTE | 2024-01-14 05:59 | NUR ---
SHIFT SUMMARY PATIENT IS ALERT AND ORIENTED. PATIENT HAS HAD NO ACUTE EVENTS THIS SHIFT. PATIENTS OSTOMY BAG HAS HAD MODERATE OUTPUT. PATIENTS OSTOMY BAG SECURED TO PATIENTS G TUBE SITE HAS INTERMITTENT LEAKAGE AND HAS TO BE SECURED WITH TEGADERM COVERING. IV FLUIDS INFUSING ORDERED. PATIENT HAS BEEN MEDICATED FOR PAIN THIS SHIFT. PATIENT HAS HAD NO COMPLAINTS OF SOB, NAUSEA OR VOMITTING THIS SHIFT. BED ALARM ON. BED IN LOCKED AND LOWEST POSITION. CALL LIGHT IN PLACE. WILL MONITOR UNTIL SHIFT CHANGE.
[2024-01-14 07:39] VITALS: BP 157/96
[2024-01-14 11:32] LABS: Source, Urine Clean Catch
[2024-01-14 11:38] LABS: Appearance, Urine Hazy (Clear); Bilirubin, Urine Neg (Neg); Blood, Urine 1+ (Neg); Color, Urine Yellow (P-Yellow); Glucose Qualitative, Urine Neg (Neg); Ketones, Urine Neg (Neg); Leukocyte Esterase, Urine 1+ (Neg); Nitrite, Urine Neg (Neg); Protein, Urine 1+ (Neg); Urobilinogen, Urine NORM (Normal)
[2024-01-14 12:52] LABS: Bacteria Many /hpf; Red Blood Cells, Urine 0-2 /hpf (0-2); Squamous Epithelial Cells Few /hpf (Few)
[2024-01-14 12:53] LABS: Amorphous Light (0-Heavy); Mucus Light (0-Heavy); Renal Epithelial Few /hpf (0-Rare); Transitional Epithelial Cells Rare /hpf (0-Rare)
[2024-01-14 16:29] VITALS: BP 142/93
--- NOTE | 2024-01-14 16:50 | NUR ---
SHIFT NOTE: PT A/OX4 ABLE TO USE CALL LIGHT TO MAKE HIS NEEDS KNOWN. HE IS ON RA, DENIES SOB. VSS. HE IS CONT, USES THE URINAL AT BEDSIDE. UA REVEALED ACTIVE INFECTION, MD NOTIFIED. NO CHANGE IN ANTIBIOTICS AT THIS TIME. HE HAS REQUIRED MEDICATED FOR PAIN THIS SHIFT. G TUBE SITE HAS HAD MODERATE OUTPUT TODAY. WILL CONTINUE TO MONITOR AND REPORT TO ONCOMING YNES
[2024-01-14 20:04] VITALS: BP 132/86
[2024-01-15 03:34] VITALS: BP 141/91
--- NOTE | 2024-01-15 07:46 | NUR ---
SHIFT SUMMARY PT IS A&OX4, PLEASANT AND APPRECIATIVE OF CARES. VSS ON RA. PT IS CACHETIC. PAIN 12/01 WHERE G TUBE WAS, MEDICATED PER EMAR WITH 5 MG PO ROXICODONE. PER PT, THE IV FENTANYL THAT IS ON HIS EMAR DOES NOTHING FOR HIS PAIN. TOLERATING A FULL LIQUID DIET. THIS RN HAS HAD TO CHANGE DRESSING TO OLD G TUBE SITE, 3 TIMES THIS SHIFT. OSTOMY BAG STILL IN PLACE AND HAS SOME OUTPUT, LEAKING FROM UNDERNEATH DRESSING. THIS IS EXTREMELY PAINFUL FOR THE PT, D/T HIS SKIN BEING MACERATED FROM STOMACH ACID. PT DOES NOT WANT G TUBE REPLACED, HE WANTS IT STITCHED CLOSE. VOIDING ADEQUATE AMOUNTS OF YELLOW URINE, INDEPENDENTLY IN URINAL. PT HAD A SMALL, HARD, BLOODY STOOL THIS SHIFT. HE SAID THEY HAVE BEEN THIS WAY RECENTLY. PT HAS NO BOWEL CARE ORDERED. BED IN LOWEST POSITION, CALL LIGHT WITHIN REACH.
[2024-01-15 07:52] VITALS: BP 132/81
[2024-01-15 09:32] LABS: BASOPHILS ABSOLUTE AUTO 0.11 K/mm3 (0.00-0.23); BASOPHILS PERCENT AUTO 1 % (0-2); EOSINOPHILS ABSOLUTE AUTO 0.02 K/mm3 (0.00-0.68); EOSINOPHILS PERCENT AUTO 0 % (0-6); Hematocrit 30.8 % (37.0-53.0); Hemoglobin 9.9 g/dL (13.5-17.5); IMMATURE GRAN ABSOLUTE AUTO 1.26 K/mm3 (0.00-0.10); IMMATURE GRAN PERCENT AUTO 9 % (0-1); LYMPHOCYTES ABSOLUTE AUTO 1.56 K/mm3 (0.84-5.20); LYMPHOCYTES PERCENT AUTO 11 % (21-46); MONOCYTES ABSOLUTE AUTO 0.57 K/mm3 (0.16-1.47); MONOCYTES PERCENT AUTO 4 % (4-13); Mean Corpuscular HGB 28.4 pg (26.0-34.0); Mean Corpuscular HGB Conc 32.1 g/dL (31.5-36.5); Mean Corpuscular Volume 89 fL (80-100); NEUTROPHILS ABSOLUTE AUTO 10.51 K/mm3 (1.96-9.15); NEUTROPHILS PERCENT AUTO 75 % (41-73); Platelet Count 201 K/mm3 (150-400); RDW Coefficient Variation 16.4 % (11.7-14.2); RDW Standard Deviation 51.1 fL (35.1-46.3); Red Blood Cell Count 3.48 M/mm3 (4.30-5.90); White Blood Cell Count 14.03 K/mm3 (4.00-11.30)
[2024-01-15 09:58] LABS: Percent Saturation 24.7 % (20.0-50.0)
[2024-01-15 10:21] LABS: Bun/Creatinine Ratio 15.7 (12.0-20.0); Calcium, Blood 6.8 mg/dL (8.5-10.1); Creatinine, Blood 0.7 mg/dL (0.60-1.20); Potassium, Blood 3.7 mmol/L (3.5-5.5)
[2024-01-15 10:30] LABS: BAND PERCENT MAN 2 % (0-8); BASOPHILS PERCENT MAN 0 % (0-2); EOSINOPHILS PERCENT MAN 0 % (0-6); LYMPHOCYTES ABSOLUTE MAN 1.12 K/mm3 (0.84-5.20); LYMPHOCYTES PERCENT MAN 8 % (21-46); MONOCYTES ABSOLUTE MAN 0.98 K/mm3 (0.16-1.47); MONOCYTES PERCENT MAN 7 % (4-13); NEUTROPHILS ABSOLUTE MAN 11.92 K/mm3 (1.96-9.15); SEG NEUTROPHILS PERCENT MAN 83 % (41-73); TOTAL CELLS COUNTED 100
--- NOTE | 2024-01-15 11:52 | NUR ---
NURSING NOTE: DRESSING WAS CHANGED AND SOAKED THROUGH IN <30MIN. CLEANED UP AND MALE PUREWICK SEALED AROUND WOUND. HOOKED UP TO SUCTION @ 60. PT DENIES PAIN OR DISCOMFORT FROM PUREWICK OR SUCTION. CONTINUING TO MONITOR.
[2024-01-15] MEDS ORDERED: OxyCODONE HCL 5 MG TAB PO PRN (12:35)
[2024-01-15 15:20] VITALS: BP 144/91
--- NOTE | 2024-01-15 16:33 | NUR ---
SHIFT SUMMARY: PT AOX4 WITH CLEAR LUNGS AND REGULAR HEART SOUNDS. WOUND DRESSING WAS SOAKED IN SEROUS FLUID, CHANGED WITH ABD PADS AND TEGADERM. SOAKED THROUGH IN <3OMIN. MALE PUREWICK HOOKED UP TO SUCTION ATTACHED AROUND WOUND AND SEALED. DRAINAGE COLLECTING IN SUCTION CANISTER. PT TOLERATED PLACEMENT AND SUCTION. PAIN MANAGEMENT BROUGHT UP WITH MD AND PAIN MEDICATION CHANGED. PT IN GOOD MOOD AND FLAT AFFECT. PUREWICK STABLE AND HOLDING SUCTION NO LEAKAGE ONTO SURROUNDING SKIN. PATIENT RESTING IN BED WATCHING TV. BED IN LOWEST POSITION AND CALL LIGHT IN REACH. CONTINUING CARE.
--- NOTE | 2024-01-15 16:37 | NUR ---
THIS SUPERVISOR MULTIFOCAL LENS CONTACTED DR KINNEY'S OFFICE TO TRY AND GET AHOLD OF DR KINNEY. THIS SUPERVISOR MULTIFOCAL LENS WAS TOLD DR KINNEY WOULD GET PINGED ABOUT PT NEEDED TO BE SEEN DUE TO EXCESSIVE LEAKAGE FROM PEGTUBE INCISION THAT NO LONGER HAS A PEG TUBE IN IT. THIS CALL WAS PLACE AROUND 0930 TODAY.
--- NOTE | 2024-01-15 16:43 | NUR ---
THIS SERVER DEVELOPER HAS REVIEWED AND AGREES WITH ALL NOTES AND ASSESSMENTS BY YNES LEIGH.
[2024-01-15 19:17] VITALS: BP 139/96
[2024-01-16 04:40] VITALS: BP 134/88
[2024-01-16 05:13] LABS: Hematocrit 30.5 % (37.0-53.0); Hemoglobin 9.7 g/dL (13.5-17.5); Mean Corpuscular HGB 28.2 pg (26.0-34.0); Mean Corpuscular HGB Conc 31.8 g/dL (31.5-36.5); Mean Corpuscular Volume 89 fL (80-100); Mean Platelet Volume 10.9 fL (9.1-12.4); Platelet Count 237 K/mm3 (150-400); RDW Coefficient Variation 16.4 % (11.7-14.2); RDW Standard Deviation 51.3 fL (35.1-46.3); Red Blood Cell Count 3.44 M/mm3 (4.30-5.90); White Blood Cell Count 13.63 K/mm3 (4.00-11.30)
[2024-01-16 05:43] LABS: BASOPHILS PERCENT MAN 0 % (0-2); EOSINOPHILS PERCENT MAN 0 % (0-6); LYMPHOCYTES ABSOLUTE MAN 0.13 K/mm3 (0.84-5.20); LYMPHOCYTES PERCENT MAN 1 % (21-46); MONOCYTES PERCENT MAN 3 % (4-13); NEUTROPHILS ABSOLUTE MAN 13.08 K/mm3 (1.96-9.15); SEG NEUTROPHILS PERCENT MAN 96 % (41-73); TOTAL CELLS COUNTED 100
[2024-01-16] MEDS ORDERED: Pantoprazole Sodium 40 MG Tab PO SCH (06:00)
[2024-01-16 06:17] LABS: Bun/Creatinine Ratio 16.2 (12.0-20.0); Calcium, Blood 6.7 mg/dL (8.5-10.1); Creatinine, Blood 0.74 mg/dL (0.60-1.20); Potassium, Blood 4.2 mmol/L (3.5-5.5)
[2024-01-16 07:21] VITALS: BP 144/92
--- NOTE | 2024-01-16 07:48 | NUR ---
SHIFT SUMMARY PT IS A&OX4, PLEASANT AND APPRECIATIVE OF CARES. VSS ON RA. PT IS CACHETIC. PAIN 12/01 WHERE G TUBE WAS, MEDICATED PER EMAR WITH 10 MG PO ROXICODONE. TOLERATING A FULL LIQUID DIET. HOWEVER, ANY PO INTAKE THIS PT CONSUMES, JUST DRAINS OUT THE OLD PEG TUBE SITE. THIS RN HAS HAD TO CHANGE DRESSING TO OLD G TUBE SITE, 3 TIMES THIS SHIFT. MALE PUREWICK IN USE AND HAS SOME OUTPUT, BUT IS LEAKING FROM UNDERNEATH DRESSING. THIS IS EXTREMELY PAINFUL FOR THE PT, D/T HIS SKIN BEING MACERATED FROM STOMACH ACID. PT DOES NOT WANT G TUBE REPLACED, HE WANTS IT STITCHED CLOSE. VOIDING ADEQUATE AMOUNTS OF YELLOW URINE, INDEPENDENTLY IN URINAL. PT HAD A MEDIUM, FIRM STOOL THIS SHIFT. PT HAS NO BOWEL CARE ORDERED. BED IN LOWEST POSITION, CALL LIGHT WITHIN REACH.
[2024-01-16] MEDS ORDERED: HYDROmorphone HCl/Pf 1MG SYR ONE (13:52)
[2024-01-16] MEDS ORDERED: HYDROmorphone HCl/Pf 1MG SYR IV ONE (13:55)
[2024-01-16] MEDS ORDERED: OxyCODONE HCL 5 MG TAB PO PRN (14:55)
--- NOTE | 2024-01-16 15:20 | NUR ---
VISIT #1 MORNING OF 01/16/24 MEET AND GREET WITH PT AND HIS DTR. WARM HANDOFF FROM PRIMARY RN'S CHARLY. MEET AND GREET WITH PT AND HIS DTR, MARGARITA. IVY TOUCHED ON HIS FRUSTRATIONS AT HIS PREVIOUS PEG TUBE SITE. THIS PC RN PROMISED TO RETURN AFTER PT'S VISIT WITH DTR AND G-DTR IS COMPLETED.
--- NOTE | 2024-01-16 15:34 | NUR ---
VISIT #2 AFTERNOON 01/16/24 JOINT VISIT WITH BEDSIDE RNLU. PT LAYING SUPINE AT 45 DEGREES. HE IS HOLDING HIS ABDOMEN, VERY GUARDED TO TOUCH, TEARFUL. PAIN IS DESCRIBED AND PINCHING/TUGGING AND 10/10. BEDSIDE RN ADMINISTERED PRN ROXICODONE. PAIN IS POORLY CONTROLLED AT THIS TIME. HE TAKES 20 MG OF ROXICODONE EVERY 4-6 HRS PRN AT HOME. CURRENT ORDER IS FOR 10 MG. THIS PC RN CONTACTED HOSPITALIST RE: PAIN. ORDER RCV'D TO INCREASE ROXICODONE TO HOME DOSING OF 20 MG ROXICODONE PO EVERY 4-6 HRS PRN FOR PAIN. THIS PC RN TALKED WITH PT AND BEDSIDE RN POSSIBLE WOUND CARE OPTIONS FOR DRAINAGE AT PREVIOUS PEG TUBE SITE. DURING THIS TIME, DR. GUTIERREZ AND HIS MEDICAL STUDENT ENTERED THE ROOM. DR. GUTIERREZ TALKED TO PT ABOUT PLACING A NEW PEG TUBE AT PREVIOUS SITE IN AN ATTEMPT TO SEAL THE PEG TRACK. DR. GUTIERREZ ATTEMPTED WITH OUT SUCCESS, TO PLACE TUBE AT BEDSIDE. PROVIDER REPORTS TO PT THAT TUBE WILL NEED TO BE PLACED BY IR. PER PT REQUEST, THIS PC RN UPDATED HIS DTR VIA PHONE.
--- NOTE | 2024-01-16 15:47 | NUR ---
NURSING NOTE: DR. GUTIERREZ REQ DRESSING CHANGE TO OSTOMY W/ PUTTY. PT DECLINED DUE TO OSTOMIES NOT WORKING AND BEING MORE PAINFUL PREVIOUSLY. ELECTED TO KEEP MALE PUREWICK TO SUCTION OVER WOUND. CONTINUING CARE.
--- NOTE | 2024-01-16 18:17 | NUR ---
SHIFT SUMMARY: PT AOX4, COMPLAINTS ABOUT CARE FROM NIGHT BEFORE. CHARGE NOTIFIED. WOUND DRESSED WITH MALE PUREWICK TO SUCTION AT 60. DRAINING APPROPRIATELY. PAIN MANAGED WITH MEDS PER EMR. LUNG SOUNDS CLEAR AND HEART SOUNDS REGULAR. DR GUTIERREZ CAME TO SEE PT AND EXPLAINED OPTIONS. ELECTED TO ATTEMPT TO REPLACE PEG TUBE AT BEDSIDE UNSUCCESSFULLY. PT IN PAIN, PO SANTINO AND IV DILAUDID GIVEN PER ORDERS. REDRESSED WITH MALE PUREWICK. PALLIATIVE CARE NURSE AT BEDSIDE TO TALK WITH PT ABOUT PLAN. DR GUTIERREZ REQUESTED DRESSING CHANGE PER NURSING NOTE BUT PT REFUSED TO KEEP CURRENT DRESSING ON. CURRENT PLAN IS TO BE NPO @ MIDNIGHT DR GUTIERREZ WILL MEET WITH PT IN THE MORNING TO DISCUSS PROCEDURE AND PLAN MOVING FORWARD. PT ANXIOUS AND IN BED BUT RESTING CURRENTLY. BED IN LOWEST POSITION AND CALL LIGHT WITHIN REACH. CONTINUING CARE.
--- NOTE | 2024-01-16 18:46 | NUR ---
THIS CORE CLEANER HAS REVIEWED AND AGREES WITH ALL NOTES AND ASSESSMENTS BY YNES LEIGH.
[2024-01-16 20:04] VITALS: BP 149/89
[2024-01-17 02:47] VITALS: BP 137/87
--- NOTE | 2024-01-17 04:29 | NUR ---
SUMMARY- PT HAD NEW APPLIANCE PLACED PER DR GUTIERREZ RECOMMENDATIONS. PT NO LONGER HAS SUCTION ATTACHED. PT HAS BEEN NPO SINCE OR. PT PAIN MANAGED WELL. PT HAS BEEN RESTING COMFORTABLY. PT VOIDING WELL VIA URINAL. NO OTHER ISSUES NOTED. CALL LIGHT IN REACH.
[2024-01-17 05:41] LABS: BASOPHILS PERCENT AUTO 1 % (0-2); EOSINOPHILS ABSOLUTE AUTO 0.01 K/mm3 (0.00-0.68); EOSINOPHILS PERCENT AUTO 0 % (0-6); Hematocrit 29.3 % (37.0-53.0); Hemoglobin 9.4 g/dL (13.5-17.5); IMMATURE GRAN ABSOLUTE AUTO 0.42 K/mm3 (0.00-0.10); IMMATURE GRAN PERCENT AUTO 4 % (0-1); LYMPHOCYTES ABSOLUTE AUTO 1.62 K/mm3 (0.84-5.20); LYMPHOCYTES PERCENT AUTO 17 % (21-46); MONOCYTES ABSOLUTE AUTO 0.64 K/mm3 (0.16-1.47); MONOCYTES PERCENT AUTO 7 % (4-13); Mean Corpuscular HGB 28.6 pg (26.0-34.0); Mean Corpuscular HGB Conc 32.1 g/dL (31.5-36.5); Mean Corpuscular Volume 89 fL (80-100); Mean Platelet Volume 10.8 fL (9.1-12.4); NEUTROPHILS ABSOLUTE AUTO 7.01 K/mm3 (1.96-9.15); NEUTROPHILS PERCENT AUTO 72 % (41-73); Platelet Count 249 K/mm3 (150-400); RDW Coefficient Variation 16.3 % (11.7-14.2); RDW Standard Deviation 52.4 fL (35.1-46.3); Red Blood Cell Count 3.29 M/mm3 (4.30-5.90)
[2024-01-17 06:07] LABS: Bun/Creatinine Ratio 17.6 (12.0-20.0); Calcium, Blood 7.6 mg/dL (8.5-10.1); Creatinine, Blood 0.8 mg/dL (0.60-1.20); Potassium, Blood 4.3 mmol/L (3.5-5.5)
[2024-01-17 07:33] VITALS: BP 129/96
[2024-01-17] MEDS ORDERED: AMOCLA875 PO (11:52)
[2024-01-17] MEDS ORDERED: VISBIOME 112.51 EACH PO (11:52)
[2024-01-17] MEDS ORDERED: PANT40 PO (11:54)
--- NOTE | 2024-01-17 14:59 | NUR ---
DISCHARGE NOTE PT DISCHARGED HOME AT 1450. PT PROVIDED W/ VERBAL AND WRITTEN INSTRUCTIONS AND REPORTED UNDERSTANDING. PT A&OX4, VSS, AMB IND, TOLERATING PO, VOIDING, AND PAIN MANAGED. YNES MAHER REPLACED APPLIANCE AND EDUCATED PT ON OSTOMY APPLICATION AND CARE. HARD SCRIPTS WERE GIVEN TO THE PT. BELONGINGS WERE RETURNED AND PT ESCOURTED HIMSELF OUT.
--- NOTE | 2024-01-17 16:18 | NUR ---
FILLED OUT NEW POLST FORM MET WITH PT AT BEDSIDE WITH PT'S DTR ON SPEAKER PHONE THIS MORNING. EXTENSIVE DISCUSSION AND EDUCATION ON CPR VS FULL CODE AND THE VARIOUS LEVELS OF MEDICAL INTERVENTIONS. PT AND DTR REQUEST, DNR WITH SELECTIVE MEDICAL INTERVENTIONS. POL[facility] FILLED OUT REFLECTING PT WISHES AND SIGNED BY PROVIDER. PER PT REQUEST, [facility] FORM FAXED TO [facility] AND [facility].
== END 2024-01-17 14:53 | disposition home or self-care (01) | DRG 862 ==
LOC: ER 15:36 → MEDS 15:37
PROVIDERS: Family Medicine; Internal Medicine; Nurse Practitioner Acute Care; Student in an Organized Health Care Education/Training Program; ADMIT Hospitalist
DX: T81.49XA Infection following a procedure, other surgical site, initial encounter (principal); A41.50 Gram-negative sepsis, unspecified; K94.22 Gastrostomy infection; L03.311 Cellulitis of abdominal wall; K62.5 Hemorrhage of anus and rectum; C15.9 Malignant neoplasm of esophagus, unspecified; E44.1 Mild protein-calorie malnutrition; K94.23 Gastrostomy malfunction; R64 Cachexia; I10 Essential (primary) hypertension; F15.10 Other stimulant abuse, uncomplicated; G43.909 Migraine, unspecified, not intractable, without status migrainosus; E78.00 Pure hypercholesterolemia, unspecified; F31.9 Bipolar disorder, unspecified; G47.33 Obstructive sleep apnea (adult) (pediatric); F17.210 Nicotine dependence, cigarettes, uncomplicated; J45.909 Unspecified asthma, uncomplicated; F90.9 Attention-deficit hyperactivity disorder, unspecified type; Y83.8 Other surgical procedures as the cause of abnormal reaction of the patient, or of later complication, without mention of misadventure at the time of the procedure; Z98.890 Other specified postprocedural states; Z68.20 Body mass index [BMI] 20.0-20.9, adult; Z88.8 Allergy status to other drugs, medicaments and biological substances; Z79.899 Other long term (current) drug therapy
CPT/HCPCS: 36415; 74177; 80048; 80053; 80076; 80202; 81001; 82607; 82728; 82746; 83540; 83550; 83605; 83690; 83735; 84100; 85014; 85018; 85025; 85027; 85610; 85730; 87040; 87077; 87086; 93306; 94760; 96365-59; 96366; 96367; 96375; 96376; 99284-25; A9270; G0378; J0692; J0696; J1170; J2270; J2405; J2470; J3010; J3370; J7030; J7050; Q9967

== ENCOUNTER 2024-04-25 10:58 | Emergency (ER) | payer OTHER ==
[~2024-04-25] VITALS: Ht 177.8 cm; Wt 59.0 kg
[~2024-04-25 10:58] MED LIST changes: +AMOCLA875 PO; +Docusate S50 MG/5 ML PO; +METO10SY PO; +PANT40 PO; +Prednisone10 MG PO; +VISBIOME 112.51 EACH PO
[2024-04-25 11:12] VITALS: BP 141/100
[2024-04-25 11:46] LABS: BASOPHILS ABSOLUTE AUTO 0.02 K/mm3 (0.00-0.23); BASOPHILS PERCENT AUTO 0 % (0-2); EOSINOPHILS ABSOLUTE AUTO 0.04 K/mm3 (0.00-0.68); EOSINOPHILS PERCENT AUTO 1 % (0-6); Hematocrit 38.3 % (37.0-53.0); Hemoglobin 11.9 g/dL (13.5-17.5); IMMATURE GRAN ABSOLUTE AUTO 0.02 K/mm3 (0.00-0.10); IMMATURE GRAN PERCENT AUTO 0 % (0-1); LYMPHOCYTES ABSOLUTE AUTO 0.77 K/mm3 (0.84-5.20); LYMPHOCYTES PERCENT AUTO 14 % (21-46); MONOCYTES ABSOLUTE AUTO 0.49 K/mm3 (0.16-1.47); MONOCYTES PERCENT AUTO 9 % (4-13); Mean Corpuscular HGB 30.4 pg (26.0-34.0); Mean Corpuscular HGB Conc 31.1 g/dL (31.5-36.5); Mean Corpuscular Volume 98 fL (80-100); Mean Platelet Volume 10.5 fL (9.1-12.4); NEUTROPHILS ABSOLUTE AUTO 4.01 K/mm3 (1.96-9.15); NEUTROPHILS PERCENT AUTO 75 % (41-73); Platelet Count 105 K/mm3 (150-400); RDW Coefficient Variation 14.4 % (11.7-14.2); RDW Standard Deviation 51.3 fL (35.1-46.3); Red Blood Cell Count 3.92 M/mm3 (4.30-5.90); White Blood Cell Count 5.35 K/mm3 (4.00-11.30)
[2024-04-25 12:03] LABS: Albumin, Blood 2.2 g/dL (3.4-5.0); Albumin/Globulin Ratio 0.5 (0.8-1.8); Bilirubin, Total 0.3 mg/dL (0.1-1.0); Calcium, Blood 8.6 mg/dL (8.5-10.1); Creatinine, Blood 0.7 mg/dL (0.60-1.20); Globulin, Blood 4.1 g/dL (2.2-4.0); Potassium, Blood 4.5 mmol/L (3.5-5.5); Total Protein, Blood 6.3 g/dL (6.4-8.2)
== END 2024-04-25 17:11 | disposition left against medical advice (07) ==
LOC: ER 10:58
PROVIDERS: Physician Assistant
DX: R22.41 Localized swelling, mass and lump, right lower limb (principal); R10.9 Unspecified abdominal pain; Z53.29 Procedure and treatment not carried out because of patient's decision for other reasons
CPT/HCPCS: 80053; 83690; 85025; 93971; 99283-25

== ENCOUNTER 2024-05-21 15:18 | Day surgery (SDC) | payer OTHER ==
[~2024-05-21 15:18] MED LIST changes: -CEPH500 PO; -ONDA4 PO
== END 2024-05-21 23:00 | disposition home or self-care (01) ==
LOC: RAD 15:18
DX: C15.5 Malignant neoplasm of lower third of esophagus (principal); R31.9 Hematuria, unspecified; Z88.5 Allergy status to narcotic agent; Z88.6 Allergy status to analgesic agent; Z88.8 Allergy status to other drugs, medicaments and biological substances
CPT/HCPCS: 36415; 36598; 80053; 81003; 85025

== ENCOUNTER → 2024-05-21 | Outpatient (CLI) | payer OTHER ==
[~2024-05-21] MED LIST changes: +CEPH500 PO; +ONDA4 PO
[2024-05-21 14:05] LABS: Appearance, Urine Clear (Clear); Bilirubin, Urine Neg (Neg); Blood, Urine Neg (Neg); Color, Urine Yellow (P-Yellow); Glucose Qualitative, Urine Neg (Neg); Ketones, Urine Neg (Neg); Leukocyte Esterase, Urine Neg (Neg); Nitrite, Urine Neg (Neg); Protein, Urine Neg (Neg); Urobilinogen, Urine NORM (Normal); pH, Urine 6.5 (5.0-8.0)
== END ==
LOC: LAB SHORT 13:57
PROVIDERS: Nurse Practitioner
DX: R31.9 Hematuria, unspecified (principal)
CPT/HCPCS: 81003

== ENCOUNTER 2024-05-23 11:45 | Day surgery (SDC) | payer OTHER ==
[2024-05-23] MEDS ORDERED: Alteplase Recombinant 2 MG / Vial IV PRN (11:55)
[2024-05-23] MEDS ORDERED: CEPH500 PO (16:23)
[2024-05-23] MEDS ORDERED: METO10SY PO (16:25)
[2024-05-23] MEDS ORDERED: ONDA4 PO (16:26)
[2024-05-23 16:29] VITALS: BP 147/101
== END 2024-05-23 17:01 | disposition home or self-care (01) ==
LOC: ATC 11:45
DX: Z45.2 Encounter for adjustment and management of vascular access device (principal); C15.5 Malignant neoplasm of lower third of esophagus; C79.51 Secondary malignant neoplasm of bone; C77.1 Secondary and unspecified malignant neoplasm of intrathoracic lymph nodes; I10 Essential (primary) hypertension; F31.9 Bipolar disorder, unspecified; E78.00 Pure hypercholesterolemia, unspecified; F90.9 Attention-deficit hyperactivity disorder, unspecified type; G43.909 Migraine, unspecified, not intractable, without status migrainosus; F17.200 Nicotine dependence, unspecified, uncomplicated; Z79.899 Other long term (current) drug therapy
CPT/HCPCS: 36593; 96523; J1642; J2997

== ENCOUNTER 2024-07-27 19:24 | Inpatient (IN) | payer OTHER ==
[~2024-07-27] VITALS: Ht 175.3 cm; Wt 56.7 kg
[~2024-07-27 19:24] MED LIST changes: +CEPH500 PO; +ONDA4 PO
[2024-07-27 19:56] LABS: BASOPHILS ABSOLUTE AUTO 0.05 K/mm3 (0.00-0.23); BASOPHILS PERCENT AUTO 1 % (0-2); EOSINOPHILS ABSOLUTE AUTO 0.12 K/mm3 (0.00-0.68); EOSINOPHILS PERCENT AUTO 1 % (0-6); Hematocrit 32.9 % (37.0-53.0); Hemoglobin 10.8 g/dL (13.5-17.5); IMMATURE GRAN ABSOLUTE AUTO 0.45 K/mm3 (0.00-0.10); IMMATURE GRAN PERCENT AUTO 4 % (0-1); LYMPHOCYTES ABSOLUTE AUTO 1.65 K/mm3 (0.84-5.20); LYMPHOCYTES PERCENT AUTO 15 % (21-46); MONOCYTES ABSOLUTE AUTO 0.69 K/mm3 (0.16-1.47); MONOCYTES PERCENT AUTO 6 % (4-13); Mean Corpuscular HGB Conc 32.8 g/dL (31.5-36.5); Mean Corpuscular Volume 85 fL (80-100); Mean Platelet Volume 9.4 fL (9.1-12.4); NEUTROPHILS ABSOLUTE AUTO 8.05 K/mm3 (1.96-9.15); NEUTROPHILS PERCENT AUTO 73 % (41-73); Platelet Count 392 K/mm3 (150-400); RDW Coefficient Variation 15.6 % (11.7-14.2); RDW Standard Deviation 46.7 fL (35.1-46.3); Red Blood Cell Count 3.86 M/mm3 (4.30-5.90); White Blood Cell Count 11.01 K/mm3 (4.00-11.30)
[2024-07-27] MEDS ORDERED: NS 1,000 ML IV SCH ×2 (20:00→22:35)
[2024-07-27 20:19] LABS: Albumin, Blood 2.5 g/dL (3.4-5.0); Albumin/Globulin Ratio 0.6 (0.8-1.8); Bilirubin, Total 0.4 mg/dL (0.1-1.0); Bun/Creatinine Ratio 33.9 (12.0-20.0); Calcium, Blood 8.3 mg/dL (8.5-10.1); Creatinine, Blood 1.24 mg/dL (0.60-1.20); Globulin, Blood 4.3 g/dL (2.2-4.0); Potassium, Blood 3.8 mmol/L (3.5-5.5); Total Protein, Blood 6.8 g/dL (6.4-8.2)
[2024-07-27] MEDS ORDERED: Ondansetron HCl 2 MG / ML 2ML Vial IV ONE (21:00)
[2024-07-27] MEDS ORDERED: CefTRIAXone Sodium 1,000 MG in NS 100 ML IV ONE (21:50)
[2024-07-27] MEDS ORDERED: Doxycycline Hyclate 100 MG in Dextrose 5% 250 ML IV ONE (21:50)
[2024-07-27] MEDS ORDERED: Morphine Sulfate 4 MG/1 ML Injection IV ONE (21:50)
[2024-07-27] MEDS ORDERED: Ondansetron HCl 2 MG / ML 2ML Vial IV PRN (22:35)
[2024-07-27] MEDS ORDERED: FentaNYL Citrate 50 MCG/ML 2 ML Injection IV PRN (22:35)
[2024-07-27] MEDS ORDERED: Metoclopramide HCl 5MG / ML 2ML Vial IV PRN (22:35)
[2024-07-27] MEDS ORDERED: SUCR1 PO (23:28)
[2024-07-27] MEDS ORDERED: DOCU100 PO (23:28)
[2024-07-28 01:16] VITALS: BP 146/101
[2024-07-28] MEDS ORDERED: HYDROmorphone HCl/Pf 1MG SYR IV PRN (03:05)
[2024-07-28 03:34] VITALS: BP 151/108
--- NOTE | 2024-07-28 04:25 | NUR ---
0015: ADMITTED FROM ER FOR INTRACTABLE PAIN CONTROL FROM ESOPHAGEAL CA WITH METS. AAOX4, SBA X1. RA. CONTINENT. HOSPICE CONSULT ORDER. UA STILL NEEDED. RFA IV FOR DOXYCYCLINE, POSSIBLE PNU.
[2024-07-28] MEDS ORDERED: FentaNYL Citrate 50 MCG/ML 2 ML Injection IV PRN (04:43)
[2024-07-28 07:14] VITALS: BP 156/95
[2024-07-28] MEDS ORDERED: FentaNYL 25 MCG Patch TOP SCH (10:00)
[2024-07-28 15:44] VITALS: BP 166/101
--- NOTE | 2024-07-28 17:32 | NUR ---
SHIFT SUMMARY PT IS A/OX4. PT SLEEPING FOR MUCH OF THE DAY. PT TOLERATING LITTLE PO INTAKE. PT REPORTING NO NAUSEA/VOMITING THROUGHOUT THIS SHIFT. PT REPORTING BACK PAIN THROUGHOUT THIS SHIFT, THOUGH BETTER MANAGED THIS EVENING WHEN COMPARED TO THIS MORNING. MEDICATED WITH DILUADID AND FENTANYL PER JUN. PT ALSO WEARING A FENTANYL PATCH AT THIS TIME. AT BEDSIDE THIS MORNING. PT CALLS APPROPRIATELY USING THE CALL LIGHT.
[2024-07-28 19:11] VITALS: BP 164/99
[2024-07-29 03:24] VITALS: BP 152/96
[2024-07-29] MEDS ORDERED: HYDROcodone 5-APAP 325 TAB PO PRN (07:45)
[2024-07-29 07:52] VITALS: BP 172/115
[2024-07-29 07:59] LABS: Bun/Creatinine Ratio 22.2 (12.0-20.0); Creatinine, Blood 1.17 mg/dL (0.60-1.20); Potassium, Blood 3.8 mmol/L (3.5-5.5)
[2024-07-29] MEDS ORDERED: Docusate Sodium 100 MG Cap PO SCH (09:00)
[2024-07-29 15:29] VITALS: BP 177/105
--- NOTE | 2024-07-29 17:27 | NUR ---
PT HAS HAD NOT CHANGES AOX4. TREATING GENERALIZED PAIN PER EMAR. PT IS ABLE TO WALK INTO RESTROOM A ONE PERSON ASSIST. PT ABLE TO MAKE NEEDS KNOWN. PT HAD A SHOWER AND DID WELL. CALL LIGHT IS IN REACH WILL CONTINUE TO MONITOR.
[2024-07-29 19:51] VITALS: BP 201/115
[2024-07-29 20:33] VITALS: BP 194/114
[2024-07-29 21:28] VITALS: BP 195/118
[2024-07-29] MEDS ORDERED: HydrALAZINE HCl 10 MG Tab PO PRN (21:30)
[2024-07-30 00:09] VITALS: BP 188/105
[2024-07-30 02:37] VITALS: BP 185/92
--- NOTE | 2024-07-30 05:59 | NUR ---
SHIFT SUMMARY PATIENT IS ALERT AND ORIENTED. PATIENT HAS HAD NO ACUTE EVENTS THIS SHIFT. PATIENT HAS BEEN MEDICATED FOR PAIN PER EMAR. PATIENT HAS NO COMPLAINTS OF SOB, NAUSEA, OR VOMITTING. BED IN LOCKED AND LOWEST POSITION. CALL LIGHT IN PLACE.
[2024-07-30 07:31] VITALS: BP 171/105
--- NOTE | 2024-07-30 14:42 | NUR ---
ATTEMPTED PC VISIT X2. PT APPEARED TO BE SLEEPING BOTH TIMES. PLAN IS TO MEET WITH PT AND PROVIDER TOMORROW 07/31/24.
[2024-07-30 15:31] VITALS: BP 162/118
--- NOTE | 2024-07-30 16:41 | NUR ---
PT IS AOX4 AND COOPERATIVE OF CARE. PT HAS NOT WANTED TO EAT AND HAS ONLY WANTED MINIMAL MILK AND JUICE. PT HAS BEEN TREATED FOR PAIN PER EMAR. PT IS ABLE TO MAKE NEEDS KNOWN AND HAS CALL LIGHT IN REACH WILL CONTINUE TO MONITOR.
--- NOTE | 2024-07-30 18:00 | NUR ---
PT HAS REPORTS HE IS HAVING A HARD TIME HEARING OUT OF LEFT EAR. DR RICE HAS BEEN NOTIFIED. PT ALSO STATES HE IF HAVING PAIN DOWN HIS ENTIRE SPINE. PT TREATED FOR PAIN PER EMAR.
[2024-07-30 19:45] VITALS: BP 162/95
[2024-07-31 04:25] VITALS: BP 160/111
--- NOTE | 2024-07-31 05:33 | NUR ---
SHIFT SUMMARY PT ALERT AND ORIENTED TIMES 3. PT IS ADMITTED FOR INTRACTABLE PAIN. PT HAS STAGE 4 ESOPHAGEAL CANCER, AND SPINAL PAIN.COPD AND SOB. PT IS ON ROOM AIR, NO TELE, AND HAS IV IN RIGHT FOREARM. . PT IS ONE PERSON ASSIST TO BEDSIDE COMMODE. PT HAS DILAUDID, FENTANYL, AND OXYCODONE FOR PAIN, WHICH HAS BEEN GIVEN PER EMAR. PT IS DISCUSSING J-TUBE PLACEMENT. WITH DR AND UNSURE IF WANTS TO BE ON HOSPICE. PT LIVES BY HIMSELF IN A TRAILER, WITH NO CARE. CALL LIGHT WITHIN REACH, RAILS TIMES 2, BED IN LOW POSITION.
[2024-07-31] MEDS ORDERED: HYDROmorphone HCl/Pf 1MG SYR IV ONE (06:45)
[2024-07-31 07:47] VITALS: BP 151/93
--- NOTE | 2024-07-31 10:02 | NUR ---
Pt has a diagnosis of esophageal cancer. He initially completed several rounds of chemotherapy in late 2023, but according to Dr. Cheema note, the patient sporadically stopped showing up to chemo appointments and would not return phone calls. He presented to the hospital this week with intractable pain. He had a consult with Dr. Cheema this morning who informed him the cancer has metastasized and has approximately 1 month to live. Pt requested to meet with Palliative Care. He states he wants to go home with hospice, and is agreeable to comfort care now due to pain and anxiety. Attempted to call his daughter Carmen, received a fast busy signal. Will continue to reach her. Dr. Chavez ordered comfort care. Will follow up with patient, include CM.
[2024-07-31] MEDS ORDERED: LORazepam 1 MG Tab PO PRN (10:20)
[2024-07-31] MEDS ORDERED: Morphine Sulfate 20 MG/1ML 1 ML Oral Syringe SL PRN (10:20)
[2024-07-31] MEDS ORDERED: HYDROmorphone HCl/Pf 1MG SYR IV PRN (13:55)
[2024-07-31] MEDS ORDERED: LORazepam 2 MG/ML 1ML Injection IV PRN (13:55)
[2024-07-31] MEDS ORDERED: Scopolamine Hydrobromide Patch TOP PRN (13:55)
--- NOTE | 2024-07-31 14:00 | NUR ---
Pt restless, agitated. He is now having theresa bloody emesis. Discussed with Dr. Chavez, increased pain, anxiety and nausea meds. Daughter at bedside. Will continue to monitor symptoms.
--- NOTE | 2024-08-01 05:50 | NUR ---
SHIFT SUMMARY PT IS ON COMFORT CARE OF 07/31/24. PT MADE COMFORTABLE PER COMFORT CARE PROTOCOL. PT HAS STAGE 4 ESOPHAGEAL CANCER, AND SPINAL PAIN. FAMILY WAS HERE VISITING. AT ONE POINT PT REJECTED SL COMFORT CARE MEDICATION. PT IS ON ROOM AIR, NO TELE,BED IN LOW POSITION, CALL LIGHT WITHIN REACH, RAILS TIMES 2.
--- NOTE | 2024-08-02 04:12 | NUR ---
NURSE NOTE SUCTION USED INTERMITTENTLY FOR COMFORT WHEN IT APPEARED PT COUGHING UP PHLEM. PT TOLERATED WELL, COUGHING SUBSIDED.
[2024-08-02] MEDS ORDERED: Atropine Sulfate 1% Opth Soln 2ML BTL SL PRN (07:40)
--- NOTE | 2024-08-02 08:03 | NUR ---
0800- THIS RN CALLED MARGARITA (DAUGHTER) AND MIMI (MOTHER) WITH NO ANSWER FROM BOTH PARTIES. RN WAS CALLED THEM TO INFORM THEM PT HAD PASSED AT 0755 THIS MORNING.
--- NOTE | 2024-08-02 08:36 | NUR ---
0822- THIS RN SPOKE W/DAUGHTER MARGARITA AND INORMED HER PT HAD PASSED AT 0755. MARGARITA STATED SHE WOUULD CALL PT'S MOTHER AND INFORM HER AND IS ON HER WAY TO THE HOSPITAL NOW.
--- NOTE | 2024-08-02 19:54 | NUR ---
ASSUMED CARE OF PT AT 1845 AND PT TODAY AT 0755. AT 1949 PT'S BODY WAS TRANSPORTED BY [facility] OF [facility] ([facility]). PT'S BELONGINGS WAS SENT WITH FAMILY MEMBERS.
== END 2024-08-02 07:55 | DRG 947 ==
LOC: ER 19:24 → ERHOLD 22:12 → MEDS 22:12
PROVIDERS: Internal Medicine; Student in an Organized Health Care Education/Training Program; ADMIT Internal Medicine
PROC: 0T9B70Z Drainage of Bladder with Drainage Device, Via Natural or Artificial Opening (ICD-10-PCS; principal; 2024-07-31)
DX: G89.3 Neoplasm related pain (acute) (chronic) (principal); E43 Unspecified severe protein-calorie malnutrition; C15.9 Malignant neoplasm of esophagus, unspecified; C78.7 Secondary malignant neoplasm of liver and intrahepatic bile duct; C79.31 Secondary malignant neoplasm of brain; C79.02 Secondary malignant neoplasm of left kidney and renal pelvis; Z51.5 Encounter for palliative care; Z66 Do not resuscitate; C79.01 Secondary malignant neoplasm of right kidney and renal pelvis; N18.5 Chronic kidney disease, stage 5; I12.0 Hypertensive chronic kidney disease with stage 5 chronic kidney disease or end stage renal disease; C79.51 Secondary malignant neoplasm of bone; E87.1 Hypo-osmolality and hyponatremia; N13.30 Unspecified hydronephrosis; R64 Cachexia; G47.30 Sleep apnea, unspecified; E88.09 Other disorders of plasma-protein metabolism, not elsewhere classified; J45.909 Unspecified asthma, uncomplicated; E78.5 Hyperlipidemia, unspecified; G43.909 Migraine, unspecified, not intractable, without status migrainosus; F90.9 Attention-deficit hyperactivity disorder, unspecified type; R11.2 Nausea with vomiting, unspecified; E86.0 Dehydration; R91.8 Other nonspecific abnormal finding of lung field; Z88.5 Allergy status to narcotic agent; Z91.81 History of falling; Z88.6 Allergy status to analgesic agent; Z88.8 Allergy status to other drugs, medicaments and biological substances; Z79.52 Long term (current) use of systemic steroids; Z87.891 Personal history of nicotine dependence; Z68.22 Body mass index [BMI] 22.0-22.9, adult
CPT/HCPCS: 36415; 70450; 74177; 80048; 80053; 83735; 83880; 85025; 93005; 93010; 96361; 96365; 96366; 96368; 96375; 99285-25; A9270; G0378; J0696; J1171; J2060; J2270; J2405; J2765; J3010; J7030; J7060; Q9967